=== PATIENT | female | born 1945 | race Caucasian/White ===

== ENCOUNTER → 2017-04-14 | Outpatient (CLI) | payer MEDICARE, MEDICAID ==
[~2017-04-14] MED LIST: AMITRIPTYLINE H25 M1 PO; ASPIRIN 81M81 MG/TA2 PO; CEFTIN500 MG PO; COUMADIN 5MG5 MG/TAB PO; COZAAR100 MG PO; DULERA1 AR1 IH; GABAPENTIN300 M1 PO; GRALISE600 MG PO; IPRATROPIUM BROM3 M1 IH; LASIX 20MG TABL20 MG; LEVAQUIN 2250 MG/TAB PO; LOTRISONE CREAM15 GM TP; LOVENOX 8080 MG/0.8 SQ; MAXZIDE; MEGACE ORAL40 MG/ML PO; MICARDIS40 MG PO; MICARDIS80 MG PO; NAPROSYN500 MG PO; NEB; NEXIUM 40MG40 MG; NEXIUM 40MG40 MG PO; NORCO 325 MG-51 TAB PO; PERCOCET 325 MG1 TA2 PO; PREDNISONE20 MG PO; PROTONIX 40MG T40 MG PO; RELION VEN0.09 MG/Ac IH; REQUIP2 MG PO; SPIRIVA18 MCG IH; VALIUM 5MG T5 MG/TAB PO; VENTOLIN0.09 MG IH; VICODIN 5/5001 UDTAB PO; ZITHROMAX Z PA250 MG PO; ZOCOR 10MG10 MG PO
== END ==
LOC: COL.RAD 12:44
DX: R91.1 Solitary pulmonary nodule (principal); K44.9 Diaphragmatic hernia without obstruction or gangrene; I70.0 Atherosclerosis of aorta
CPT/HCPCS: Q9967

== ENCOUNTER → 2017-09-26 | Outpatient (CLI) | payer MEDICARE, MEDICAID ==
[~2017-09-26] MED LIST changes: +ATIVAN 0.50.5 MG/TAB PO; +TRAVEL SICKNESS50 MG PO
== END ==
LOC: COL.RAD 13:23
DX: R20.0 Anesthesia of skin (principal); R20.2 Paresthesia of skin
CPT/HCPCS: J7050; Q9967

== ENCOUNTER → 2018-02-08 | Outpatient (CLI) | payer MEDICARE, MEDICAID | LOC: COL.RAD 08:35 | DX: R07.9 Chest pain, unspecified (principal); R06.09 Other forms of dyspnea; Z86.711 Personal history of pulmonary embolism | CPT/HCPCS: Q9967 ==

== ENCOUNTER 2018-03-03 06:52 | Day surgery (SDC) | payer MEDICARE, MEDICAID ==
[~2018-03-03] VITALS: Ht 167.6 cm; Wt 66.8 kg
[2018-03-03 07:08] VITALS: BP 147/84; PULSE 75; TEMP 97.6
[2018-03-03] MEDS ORDERED: 00186-0372-20 IH (07:12)
[2018-03-03] MEDS ORDERED: ATHLETE'S FOOT1% TP (07:13)
[2018-03-03] MEDS ORDERED: GRALISE600 MG PO (07:14)
[2018-03-03] MEDS ORDERED: COZAAR 50MG50 MG/TAB PO (07:14)
[2018-03-03] MEDS ORDERED: LIPITOR 10MG10 MG PO (07:14)
[2018-03-03 10:30] VITALS: BP 123/59; PULSE 64; TEMP 97.2
[2018-03-03 10:45] VITALS: BP 137/78; PULSE 68; TEMP 97.8
[2018-03-03 11:00] VITALS: BP 134/50; PULSE 66; TEMP 98.4
== END 2018-03-03 11:25 | disposition home or self-care (01) ==
LOC: SDCO 06:52
DX: K40.90 Unilateral inguinal hernia, without obstruction or gangrene, not specified as recurrent (principal); I10 Essential (primary) hypertension; E78.5 Hyperlipidemia, unspecified; J43.1 Panlobular emphysema; I25.10 Atherosclerotic heart disease of native coronary artery without angina pectoris; K21.9 Gastro-esophageal reflux disease without esophagitis; F17.210 Nicotine dependence, cigarettes, uncomplicated; Z91.013 Allergy to seafood; Z90.49 Acquired absence of other specified parts of digestive tract; Z86.73 Personal history of transient ischemic attack (TIA), and cerebral infarction without residual deficits; Z86.718 Personal history of other venous thrombosis and embolism; Z86.711 Personal history of pulmonary embolism; Z80.42 Family history of malignant neoplasm of prostate; Z82.3 Family history of stroke; Z83.3 Family history of diabetes mellitus; Z82.49 Family history of ischemic heart disease and other diseases of the circulatory system
CPT/HCPCS: C1781; J0690; J1100; J2405; J2704; J2795; J3010; J7120

== ENCOUNTER → 2018-05-23 | Outpatient (CLI) | payer MEDICARE, MEDICAID ==
[~2018-05-23] MED LIST changes: +00186-0372-20 IH; +ATHLETE'S FOOT1% TP; +COZAAR 50MG50 MG/TAB PO; +LIPITOR 10MG10 MG PO
== END ==
LOC: COL.PUL 12:27
DX: J41.1 Mucopurulent chronic bronchitis (principal); J43.8 Other emphysema; F17.200 Nicotine dependence, unspecified, uncomplicated

== ENCOUNTER 2018-06-20 14:44 | Inpatient (IN) | payer MEDICARE, MEDICAID ==
[~2018-06-20] VITALS: Ht 170.2 cm; Wt 62.9 kg
[2018-06-20] VITALS (10 sets, daily range): BP systolic 89–124; BP diastolic 52–69; PULSE 73–89; TEMP 98.6–99.7
[2018-06-20 15:26] LABS: BASO % 0.2 % (0.0-2.0); EOS % 0.1 % (0-4.0); GRAN # 9.4 (1.4-6.5); GRAN % 75.1 % (42.2-75.2); LYMPH # 2.2 (1.2-3.4); LYMPH % 17.6 % (20.0-51.0); MEAN CELL VOLUME 92 fl (80.0-100.0); MEAN CORPUSCULAR HGB CONC 35 g/dl (33.0-37.0); MEAN PLATELET VOLUME 9.7 fl (7.4-10.4); MONO # 0.8 (0.1-0.6); MONO % 6.1 % (1.7-9.3); PLATELET COUNT 259 K/mm3 (130-400); RED BLOOD COUNT 2.12 M/mm3 (4.10-5.30); REDCELL DISTRIBUTION WIDTH-CV 13.4 % (11.5-14.5)
[2018-06-20 15:32] LABS: HEMATOCRIT 19.5 % (37.0-47.0); HEMOGLOBIN 6.8 g/dl (12.5-16.0); MEAN CORPUSCULAR HEMOGLOBIN 32 pg (27.0-31.0)
[2018-06-20 15:39] LABS: ALANINE AMINOTRANSFERASE 33 U/L (9-52); ALBUMIN 3.4 gm/dL (3.5-5.0); ALKALINE PHOSPHATASE 45 U/L (50-136); ANION GAP 8 mmol/L (7-16); AST,SGOT 31 U/L (15-37); BILIRUBIN,TOTAL 0.4 mg/dL (0.0-1.0); BLOOD UREA NITROGEN 35 mg/dL (7-17); C-REACTIVE PROTEIN < 0.5 mg/dL (0.0-0.9); CALCIUM 8.6 mg/dL (8.4-10.2); CARBON DIOXIDE 23 mmol/L (22-30); CHLORIDE 95 mmol/L (98-107); CREATININE, serum 0.95 mg/dL (0.52-1.25); GLUCOSE 100 mg/dL (74-106); LIPASE 175 U/L (23-300); POTASSIUM 3.6 mmol/L (3.4-5.0); SODIUM 126 mmol/L (137-145); TOTAL PROTEIN 5.9 gm/dL (6.4-8.2)
[2018-06-20 15:48] LABS: TROPONIN-I 0.019 ng/mL (0.000-0.034)
[2018-06-21] VITALS (10 sets, daily range): BP systolic 92–127; BP diastolic 42–83; PULSE 61–111; TEMP 97.7–98.5
[2018-06-21 06:48] LABS: BASO % 0.3 % (0.0-2.0); EOS # 0.2 (0.0-0.7); EOS % 1.7 % (0-4.0); GRAN # 5.1 (1.4-6.5); GRAN % 57.5 % (42.2-75.2); LYMPH # 2.7 (1.2-3.4); LYMPH % 30.1 % (20.0-51.0); MEAN CELL VOLUME 93 fl (80.0-100.0); MEAN CORPUSCULAR HGB CONC 33 g/dl (33.0-37.0); MEAN PLATELET VOLUME 10.4 fl (7.4-10.4); MONO # 0.8 (0.1-0.6); MONO % 8.8 % (1.7-9.3); PLATELET COUNT 188 K/mm3 (130-400); RED BLOOD COUNT 2.14 M/mm3 (4.10-5.30); REDCELL DISTRIBUTION WIDTH-CV 15.5 % (11.5-14.5)
[2018-06-21 06:50] LABS: HEMATOCRIT 19.8 % (37.0-47.0); HEMOGLOBIN 6.6 g/dl (12.5-16.0); MEAN CORPUSCULAR HEMOGLOBIN 31 pg (27.0-31.0)
[2018-06-21 06:59] LABS: CALCIUM 7.5 mg/dL (8.4-10.2); CREATININE, serum 0.96 mg/dL (0.52-1.25); POTASSIUM 3.1 mmol/L (3.4-5.0)
[2018-06-21 07:55] LABS: BAND 3 % (0-10); EOSINOPHIL 2 % (0-4); LYMPHOCYTE 30 % (20.0-51.0); METAMYELOCYTE 1 % (0-0); NEUTROPHILS 60 % (42.0-75.2)
[2018-06-21 07:56] LABS: HYPOCHROMIA 1+; PLATELET ESTIMATE NORMAL (NORMAL)
[2018-06-21 07:58] LABS: ANISOCYTOSIS 2+; OVALOCYTES 1+; POIKILOCYTOSIS 1+
[2018-06-21 19:26] LABS: HEMOGLOBIN 7.8 g/dl (12.5-16.0)
[2018-06-21 19:27] LABS: HEMATOCRIT 23.2 % (37.0-47.0)
[2018-06-22 01:06] VITALS: BP 142/90; PULSE 80; TEMP 98
[2018-06-22 05:26] VITALS: BP 138/64; PULSE 75; TEMP 99.2
[2018-06-22 05:38] VITALS: BP 138/64; PULSE 75; TEMP 99.2
[2018-06-22 07:21] VITALS: BP 119/69; PULSE 74; TEMP 97.9
[2018-06-22 07:29] LABS: MEAN CELL VOLUME 93 fl (80.0-100.0); MEAN CORPUSCULAR HGB CONC 33 g/dl (33.0-37.0); MEAN PLATELET VOLUME 10.5 fl (7.4-10.4); PLATELET COUNT 184 K/mm3 (130-400); RED BLOOD COUNT 2.64 M/mm3 (4.10-5.30); REDCELL DISTRIBUTION WIDTH-CV 16.8 % (11.5-14.5)
[2018-06-22 07:33] LABS: CALCIUM 7.9 mg/dL (8.4-10.2); CREATININE, serum 0.86 mg/dL (0.52-1.25); POTASSIUM 3.4 mmol/L (3.4-5.0)
[2018-06-22 07:41] LABS: HEMATOCRIT 24.6 % (37.0-47.0); HEMOGLOBIN 8.2 g/dl (12.5-16.0); MEAN CORPUSCULAR HEMOGLOBIN 31 pg (27.0-31.0)
[2018-06-22 08:18] VITALS: BP 120/58; PULSE 73
[2018-06-22 09:49] LABS: EOSINOPHIL 3 % (0-4); LYMPHOCYTE 19 % (20.0-51.0); METAMYELOCYTE 1 % (0-0); NEUTROPHILS 71 % (42.0-75.2); PLATELET ESTIMATE NORMAL (NORMAL)
[2018-06-22 09:50] LABS: BURR CELLS 1+; POLYCHROMASIA 1+
[2018-06-22] MEDS ORDERED: PROTONIX 40MG T40 MG PO (10:26)
[2018-06-22] MEDS ORDERED: ZOFRAN ODT4 MG PO (10:30)
== END 2018-06-22 11:43 | disposition home or self-care (01) | DRG 378 ==
LOC: COL.ER 14:44 → MEDICAL 16:19
PROVIDERS: Emergency Medicine; Internal Medicine Gastroenterology; Physician Assistant
PROC: 0W3P8ZZ Control Bleeding in Gastrointestinal Tract, Via Natural or Artificial Opening Endoscopic (ICD-10-PCS; principal; 2018-06-21 08:30)
PROC: 0DJD8ZZ Inspection of Lower Intestinal Tract, Via Natural or Artificial Opening Endoscopic (ICD-10-PCS; 2018-06-22)
DX: K92.1 Melena (principal); D62 Acute posthemorrhagic anemia; E87.1 Hypo-osmolality and hyponatremia; Z66 Do not resuscitate; I10 Essential (primary) hypertension; J44.9 Chronic obstructive pulmonary disease, unspecified; Z86.711 Personal history of pulmonary embolism; F17.210 Nicotine dependence, cigarettes, uncomplicated; E87.6 Hypokalemia; K64.0 First degree hemorrhoids
CPT/HCPCS: 99222-AI; 99232-AI; 99239; C9113; J2405; J2704; J3480; J7030; P9016

== ENCOUNTER 2018-07-07 10:38 | Inpatient (IN) | payer MEDICARE, MEDICAID ==
[2018-07-07] VITALS (214 sets, daily range): BP systolic 107–137; BP diastolic 58–84; PULSE 81; TEMP 97.8–98.1; O2SAT 75–100
[~2018-07-07] VITALS: Ht 167.6 cm; Wt 60.3 kg
[~2018-07-07 10:38] MED LIST changes: +ZOFRAN ODT4 MG PO
[2018-07-07 11:54] LABS: BASO % 0.4 % (0.0-2.0); EOS # 0.1 (0.0-0.7); EOS % 1.1 % (0-4.0); GRAN # 6.4 (1.4-6.5); GRAN % 75.6 % (42.2-75.2); HEMOGLOBIN 10.3 g/dl (12.5-16.0); LYMPH # 1.5 (1.2-3.4); LYMPH % 17.6 % (20.0-51.0); MEAN CELL VOLUME 95 fl (80.0-100.0); MEAN CORPUSCULAR HEMOGLOBIN 30 pg (27.0-31.0); MEAN CORPUSCULAR HGB CONC 32 g/dl (33.0-37.0); MEAN PLATELET VOLUME 9.2 fl (7.4-10.4); MONO # 0.4 (0.1-0.6); MONO % 4.4 % (1.7-9.3); PLATELET COUNT 405 K/mm3 (130-400); RED BLOOD COUNT 3.41 M/mm3 (4.10-5.30); REDCELL DISTRIBUTION WIDTH-CV 16.3 % (11.5-14.5)
[2018-07-07 11:58] LABS: HEMATOCRIT 32.5 % (37.0-47.0)
[2018-07-07] MEDS ORDERED: NATURAL IRON65 MG PO (12:01)
[2018-07-07 12:03] LABS: ALBUMIN 3.9 gm/dL (3.5-5.0); BILIRUBIN,TOTAL 0.3 mg/dL (0.0-1.0); CALCIUM 9.1 mg/dL (8.4-10.2); CREATININE, serum 1.16 mg/dL (0.52-1.25); INR 1.1 (0.8-3.0); POTASSIUM 4.2 mmol/L (3.4-5.0); TOTAL PROTEIN 7.1 gm/dL (6.4-8.2)
[2018-07-07 12:14] LABS: TROPONIN-I 0.017 ng/mL (0.000-0.034)
[2018-07-07 14:48] LABS: COLLECTION METHOD CLEAN CATCH
[2018-07-07 14:59] LABS: PH 6 (5-8); SQUAMOUS EPITHELIAL 0-2 /hpf; URINE APPEARANCE Clear; URINE BACTERIA None Seen /hpf; URINE BILIRUBIN Negative (NEGATIVE); URINE BLOOD Negative (NEGATIVE); URINE COLOR Straw; URINE GLUCOSE Negative (NEGATIVE); URINE KETONE Negative (NEGATIVE); URINE LEUKOCYTE ESTERASE Negative (NEGATIVE); URINE NITRATE Negative (NEGATIVE); URINE PROTEIN(semi-quant) Negative (NEGATIVE); URINE RBC 0-2 /hpf; URINE UROBILINOGEN Negative (NEGATIVE); URINE WBC 0-2 /hpf
[2018-07-07 17:15] LABS: PARTIAL THROMBOPLASTIN TIME 32.4 SECONDS (26.0-37.0)
[2018-07-08] VITALS (853 sets, daily range): BP systolic 105–127; BP diastolic 55–71; PULSE 68–90; TEMP 97.3–98.5; O2SAT 76–100
[2018-07-08 03:22] LABS: PARTIAL THROMBOPLASTIN TIME 126.1 SECONDS (26.0-37.0)
[2018-07-08 03:28] LABS: BASO % 0.5 % (0.0-2.0); EOS # 0.3 (0.0-0.7); EOS % 4.6 % (0-4.0); GRAN # 3.3 (1.4-6.5); GRAN % 54.1 % (42.2-75.2); LYMPH % 32.9 % (20.0-51.0); MEAN CELL VOLUME 95 fl (80.0-100.0); MEAN CORPUSCULAR HGB CONC 32 g/dl (33.0-37.0); MEAN PLATELET VOLUME 9.7 fl (7.4-10.4); MONO # 0.4 (0.1-0.6); MONO % 7.2 % (1.7-9.3); PLATELET COUNT 359 K/mm3 (130-400); RED BLOOD COUNT 2.89 M/mm3 (4.10-5.30); REDCELL DISTRIBUTION WIDTH-CV 16.2 % (11.5-14.5)
[2018-07-08 03:29] LABS: HEMATOCRIT 27.3 % (37.0-47.0); HEMOGLOBIN 8.7 g/dl (12.5-16.0); MEAN CORPUSCULAR HEMOGLOBIN 30 pg (27.0-31.0)
[2018-07-08 03:33] LABS: CALCIUM 8.4 mg/dL (8.4-10.2); CREATININE, serum 0.93 mg/dL (0.52-1.25); POTASSIUM 4.1 mmol/L (3.4-5.0)
[2018-07-08 12:17] LABS: IRON,SERUM 18 ug/dL (35-150)
[2018-07-08 12:25] LABS: TOTAL IRON BINDING CAPACITY 355 ug/dL (265-497)
[2018-07-08 14:33] LABS: HEMOGLOBIN 8.9 g/dl (12.5-16.0)
[2018-07-08 18:22] LABS: HEMATOCRIT 28.4 % (37.0-47.0); HEMOGLOBIN 9.1 g/dl (12.5-16.0)
[2018-07-08 22:37] LABS: HEMOGLOBIN 8.2 g/dl (12.5-16.0)
[2018-07-08 22:38] LABS: HEMATOCRIT 25.3 % (37.0-47.0)
[2018-07-09] VITALS (441 sets, daily range): BP systolic 98–128; BP diastolic 42–79; PULSE 77–82; TEMP 97.9–98.3; O2SAT 72–100
[2018-07-09 05:19] LABS: MEAN CELL VOLUME 93 fl (80.0-100.0); MEAN CORPUSCULAR HGB CONC 32 g/dl (33.0-37.0); MEAN PLATELET VOLUME 9.2 fl (7.4-10.4); PLATELET COUNT 362 K/mm3 (130-400); RED BLOOD COUNT 3.19 M/mm3 (4.10-5.30); REDCELL DISTRIBUTION WIDTH-CV 15.7 % (11.5-14.5)
[2018-07-09 05:23] LABS: HEMATOCRIT 29.6 % (37.0-47.0); HEMOGLOBIN 9.6 g/dl (12.5-16.0); MEAN CORPUSCULAR HEMOGLOBIN 30 pg (27.0-31.0)
[2018-07-09 08:31] LABS: CALCIUM 8.9 mg/dL (8.4-10.2); CREATININE, serum 0.94 mg/dL (0.52-1.25); POTASSIUM 4.2 mmol/L (3.4-5.0)
[2018-07-09 14:09] LABS: COAG INR 1.2 (0.9-1.2)
[2018-07-09] MEDS ORDERED: ATIVAN 0.50.5 MG/TAB PO (15:16)
[2018-07-10 04:34] VITALS: BP 106/91; PULSE 87; TEMP 98
[2018-07-10 07:04] LABS: BASO % 0.4 % (0.0-2.0); EOS # 0.3 (0.0-0.7); EOS % 4.9 % (0-4.0); GRAN # 3.1 (1.4-6.5); GRAN % 59.2 % (42.2-75.2); LYMPH # 1.5 (1.2-3.4); LYMPH % 27.9 % (20.0-51.0); MEAN CELL VOLUME 94 fl (80.0-100.0); MEAN CORPUSCULAR HGB CONC 32 g/dl (33.0-37.0); MEAN PLATELET VOLUME 9.5 fl (7.4-10.4); MONO # 0.4 (0.1-0.6); MONO % 7.2 % (1.7-9.3); PLATELET COUNT 383 K/mm3 (130-400); RED BLOOD COUNT 3.13 M/mm3 (4.10-5.30); REDCELL DISTRIBUTION WIDTH-CV 15.9 % (11.5-14.5)
[2018-07-10 07:07] LABS: HEMATOCRIT 29.3 % (37.0-47.0); HEMOGLOBIN 9.5 g/dl (12.5-16.0); MEAN CORPUSCULAR HEMOGLOBIN 30 pg (27.0-31.0)
[2018-07-10 07:21] LABS: FACTOR V LEIDEN MUTATION B Negative (Negative); PARTIAL THROMBLASTIN TIME 331.2 seconds (25.0-35.0)
[2018-07-10 07:22] LABS: PT G20210A MUTATION B Negative (Negative)
[2018-07-10 07:38] VITALS: BP 136/75; PULSE 88; TEMP 98.3
[2018-07-10 08:30] LABS: CALCIUM 8.9 mg/dL (8.4-10.2); CREATININE, serum 0.9 mg/dL (0.52-1.25); POTASSIUM 4.1 mmol/L (3.4-5.0)
[2018-07-10 11:54] VITALS: BP 117/74; PULSE 97; TEMP 97.9
[2018-07-10 16:31] VITALS: BP 106/52; PULSE 82; TEMP 98.4
[2018-07-10 18:43] VITALS: BP 114/68; PULSE 95
[2018-07-11 04:00] VITALS: BP 119/55; PULSE 86; TEMP 97.6
[2018-07-11 06:28] LABS: MEAN CELL VOLUME 93 fl (80.0-100.0); MEAN CORPUSCULAR HGB CONC 33 g/dl (33.0-37.0); MEAN PLATELET VOLUME 9.8 fl (7.4-10.4); PLATELET COUNT 367 K/mm3 (130-400); RED BLOOD COUNT 3.04 M/mm3 (4.10-5.30); REDCELL DISTRIBUTION WIDTH-CV 15.9 % (11.5-14.5)
[2018-07-11 06:29] LABS: HEMATOCRIT 28.3 % (37.0-47.0); HEMOGLOBIN 9.2 g/dl (12.5-16.0); MEAN CORPUSCULAR HEMOGLOBIN 30 pg (27.0-31.0)
[2018-07-11 06:39] LABS: PROTHROMBIN TIME 11.2 SECONDS (9.7-12.8)
[2018-07-11 07:25] VITALS: BP 122/62; PULSE 77; TEMP 98.5
[2018-07-11 10:10] LABS: ANTI-THROMBIN III 114 % (72-128)
[2018-07-11 10:14] LABS: PROTEIN C ACTIVITY 99 % (70-150)
[2018-07-11 11:17] VITALS: BP 107/71; PULSE 90; TEMP 98.5
[2018-07-11 14:30] LABS: LUPUS ANTICOAGULANT INR 1.3 (()); LUPUS ANTICOAGULANT PT 14.8 sec (())
[2018-07-11 15:06] VITALS: BP 103/62; PULSE 78; TEMP 98.3
[2018-07-11 19:50] VITALS: BP 106/57; PULSE 78; TEMP 98.4
[2018-07-12] VITALS (7 sets, daily range): BP systolic 95–116; BP diastolic 42–87; PULSE 74–86; TEMP 97.3–98.6
[2018-07-12 07:17] LABS: PROTHROMBIN TIME 11.8 SECONDS (9.7-12.8)
[2018-07-12 07:20] LABS: HEMATOCRIT 30.4 % (37.0-47.0); HEMOGLOBIN 9.6 g/dl (12.5-16.0)
[2018-07-13 03:58] VITALS: BP 130/95; PULSE 110; TEMP 98.5
[2018-07-13 07:37] LABS: HEMATOCRIT 28.7 % (37.0-47.0)
[2018-07-13 07:50] LABS: INR 1.3 (0.8-3.0)
[2018-07-13 07:58] VITALS: BP 106/60; PULSE 79; TEMP 98.8
[2018-07-13] MEDS ORDERED: FERROUS GL325 MG/TAB PO (10:57)
[2018-07-13] MEDS ORDERED: COUMADIN 5MG5 MG/TAB PO (10:58)
[2018-07-13] MEDS ORDERED: LOVENOX 6060 MG/0.6 SQ (10:59)
[2018-07-13 11:43] VITALS: BP 117/48; PULSE 71; TEMP 98.6
== END 2018-07-13 14:50 | disposition home or self-care (01) | DRG 176 ==
LOC: COL.ER 10:38 → ICU 14:35 → MEDICAL 07-09 10:15
PROVIDERS: Emergency Medicine; Hospitalist; Internal Medicine Pulmonary Disease; Physician Assistant
DX: I26.99 Other pulmonary embolism without acute cor pulmonale (principal); I82.443 Acute embolism and thrombosis of tibial vein, bilateral; E87.1 Hypo-osmolality and hyponatremia; E44.0 Moderate protein-calorie malnutrition; I10 Essential (primary) hypertension; J44.9 Chronic obstructive pulmonary disease, unspecified; G62.9 Polyneuropathy, unspecified; F17.210 Nicotine dependence, cigarettes, uncomplicated; E78.5 Hyperlipidemia, unspecified
CPT/HCPCS: 99232-AI; 99233-AI; C9113; J1644; J7030; Q9967

== ENCOUNTER 2018-08-01 10:18 | Emergency (ER) | payer MEDICARE, MEDICAID ==
[~2018-08-01] VITALS: Ht 170.2 cm; Wt 60.9 kg
[~2018-08-01 10:18] MED LIST changes: +FERROUS GL325 MG/TAB PO; +LOVENOX 6060 MG/0.6 SQ; +NATURAL IRON65 MG PO
[2018-08-01 10:55] LABS: BASO % 0.4 % (0.0-2.0); EOS # 0.2 (0.0-0.7); GRAN # 4.9 (1.4-6.5); GRAN % 63.1 % (42.2-75.2); HEMOGLOBIN 11.3 g/dl (12.5-16.0); LYMPH % 26.1 % (20.0-51.0); MEAN CELL VOLUME 93 fl (80.0-100.0); MEAN CORPUSCULAR HEMOGLOBIN 30 pg (27.0-31.0); MEAN CORPUSCULAR HGB CONC 32 g/dl (33.0-37.0); MEAN PLATELET VOLUME 9.2 fl (7.4-10.4); MONO # 0.6 (0.1-0.6); MONO % 7.1 % (1.7-9.3); PLATELET COUNT 348 K/mm3 (130-400); RED BLOOD COUNT 3.81 M/mm3 (4.10-5.30); REDCELL DISTRIBUTION WIDTH-CV 15.7 % (11.5-14.5)
[2018-08-01 10:56] LABS: HEMATOCRIT 35.5 % (37.0-47.0)
[2018-08-01 10:58] LABS: INR 1.2 (0.8-3.0); PROTHROMBIN TIME 13.2 SECONDS (9.7-12.8)
[2018-08-01] MEDS ORDERED: COZAAR 50MG50 MG/TAB PO (11:02)
[2018-08-01 11:03] LABS: ALANINE AMINOTRANSFERASE 33 U/L (9-52); ALBUMIN 4.1 gm/dL (3.5-5.0); ALKALINE PHOSPHATASE 71 U/L (50-136); ANION GAP 8 mmol/L (7-16); AST,SGOT 35 U/L (15-37); BILIRUBIN,TOTAL 0.3 mg/dL (0.0-1.0); BLOOD UREA NITROGEN 17 mg/dL (7-17); CARBON DIOXIDE 24 mmol/L (22-30); CHLORIDE 97 mmol/L (98-107); CREATININE, serum 1.03 mg/dL (0.52-1.25); GLUCOSE 72 mg/dL (74-106); POTASSIUM 4.8 mmol/L (3.4-5.0); SODIUM 130 mmol/L (137-145); TOTAL PROTEIN 7.2 gm/dL (6.4-8.2)
[2018-08-01] MEDS ORDERED: VENTOLIN0.09 MG INH (11:03)
[2018-08-01 11:15] LABS: TROPONIN-I < 0.012 ng/mL (0.000-0.034)
[2018-08-01 11:50] LABS: HEMOGLOBIN 10.3 g/dl (12.5-16.0)
[2018-08-01 11:51] LABS: HEMATOCRIT 32.7 % (37.0-47.0)
[2018-08-01 12:13] LABS: COLLECTION METHOD CLEAN CATCH
[2018-08-01 12:20] LABS: MUCOUS Present /lpf; PH 6 (5-8); SQUAMOUS EPITHELIAL 0-2 /hpf; URINE APPEARANCE Clear; URINE BACTERIA None Seen /hpf; URINE BILIRUBIN Negative (NEGATIVE); URINE BLOOD 1+ (NEGATIVE); URINE COLOR Yellow; URINE GLUCOSE Negative (NEGATIVE); URINE KETONE Negative (NEGATIVE); URINE LEUKOCYTE ESTERASE Negative (NEGATIVE); URINE NITRATE Negative (NEGATIVE); URINE PROTEIN(semi-quant) Negative (NEGATIVE); URINE RBC 0-2 /hpf; URINE UROBILINOGEN Negative (NEGATIVE); URINE WBC 0-2 /hpf
[2018-08-01 12:52] VITALS: BP 107/74; PULSE 70; TEMP 98.2
== END 2018-08-01 12:53 | disposition home or self-care (01) ==
LOC: COL.ER 10:18
PROVIDERS: Emergency Medicine
DX: R53.81 Other malaise (principal); K92.2 Gastrointestinal hemorrhage, unspecified; I26.99 Other pulmonary embolism without acute cor pulmonale; I10 Essential (primary) hypertension; J44.9 Chronic obstructive pulmonary disease, unspecified; F17.210 Nicotine dependence, cigarettes, uncomplicated; Z79.01 Long term (current) use of anticoagulants; Z79.899 Other long term (current) drug therapy; Z86.711 Personal history of pulmonary embolism
CPT/HCPCS: J7030

== ENCOUNTER 2018-11-30 10:30 | Emergency (ER) | payer MEDICARE, MEDICAID ==
[~2018-11-30] VITALS: Ht 170.2 cm; Wt 60.9 kg
[~2018-11-30 10:30] MED LIST changes: +VENTOLIN0.09 MG INH
[2018-11-30 10:38] VITALS: TEMP 98
[2018-11-30] MEDS ORDERED: CLOTRIMAZOLE VA45 GM TP (11:02)
[2018-11-30 11:14] LABS: BASO % 0.4 % (0.0-2.0); EOS # 0.1 (0.0-0.7); EOS % 1.4 % (0-4.0); GRAN # 5.1 (1.4-6.5); HEMATOCRIT 39.7 % (37.0-47.0); LYMPH # 1.8 (1.2-3.4); LYMPH % 23.1 % (20.0-51.0); MEAN CELL VOLUME 91 fl (80.0-100.0); MEAN CORPUSCULAR HEMOGLOBIN 30 pg (27.0-31.0); MEAN CORPUSCULAR HGB CONC 33 g/dl (33.0-37.0); MEAN PLATELET VOLUME 9.7 fl (7.4-10.4); MONO # 0.6 (0.1-0.6); MONO % 7.6 % (1.7-9.3); PLATELET COUNT 321 K/mm3 (130-400); RED BLOOD COUNT 4.36 M/mm3 (4.10-5.30); REDCELL DISTRIBUTION WIDTH-CV 18.2 % (11.5-14.5)
[2018-11-30 11:15] LABS: ALANINE AMINOTRANSFERASE 30 U/L (9-52); ALBUMIN 4.3 gm/dL (3.5-5.0); ALKALINE PHOSPHATASE 91 U/L (50-136); ANION GAP 6 mmol/L (7-16); AST,SGOT 38 U/L (15-37); BILIRUBIN,TOTAL 0.6 mg/dL (0.0-1.0); BLOOD UREA NITROGEN 19 mg/dL (7-17); CALCIUM 9.7 mg/dL (8.4-10.2); CARBON DIOXIDE 27 mmol/L (22-30); CHLORIDE 102 mmol/L (98-107); CREATININE, serum 0.99 mg/dL (0.52-1.25); GLUCOSE 88 mg/dL (74-106); LIPASE 355 U/L (23-300); SODIUM 135 mmol/L (137-145); TOTAL PROTEIN 7.6 gm/dL (6.4-8.2)
[2018-11-30 11:35] LABS: TROPONIN-I < 0.012 ng/mL (0.000-0.034)
[2018-11-30 11:59] LABS: INR 1.6 (0.8-3.0); PROTHROMBIN TIME 18.2 SECONDS (9.7-12.8)
[2018-11-30 12:02] LABS: PARTIAL THROMBOPLASTIN TIME 39.1 SECONDS (26.0-37.0)
[2018-11-30 12:54] LABS: COLLECTION METHOD CLEAN CATCH
[2018-11-30 12:59] LABS: PH 7 (5-8); SQUAMOUS EPITHELIAL 0-2 /hpf; URINE APPEARANCE Clear; URINE BACTERIA None Seen /hpf; URINE BILIRUBIN Negative (NEGATIVE); URINE BLOOD 2+ (NEGATIVE); URINE COLOR Straw; URINE GLUCOSE Negative (NEGATIVE); URINE KETONE Negative (NEGATIVE); URINE LEUKOCYTE ESTERASE Negative (NEGATIVE); URINE NITRATE Negative (NEGATIVE); URINE PROTEIN(semi-quant) Negative (NEGATIVE); URINE RBC 0-2 /hpf; URINE UROBILINOGEN Negative (NEGATIVE)
[2018-11-30] MEDS ORDERED: ANTIVERT 25MG25 MG PO (14:44)
[2018-11-30] MEDS ORDERED: ZOFRAN ODT4 MG PO (14:44)
[2018-11-30 14:55] VITALS: BP 129/73; PULSE 68
== END 2018-11-30 14:55 | disposition home or self-care (01) ==
LOC: COL.ER 10:30
PROVIDERS: Emergency Medicine
DX: R42 Dizziness and giddiness (principal); J44.9 Chronic obstructive pulmonary disease, unspecified; E78.5 Hyperlipidemia, unspecified; Z90.89 Acquired absence of other organs; F17.210 Nicotine dependence, cigarettes, uncomplicated; Z79.01 Long term (current) use of anticoagulants; Z86.711 Personal history of pulmonary embolism; Z86.718 Personal history of other venous thrombosis and embolism; Z98.890 Other specified postprocedural states
CPT/HCPCS: J2405; J7030; Q9967

== ENCOUNTER 2019-04-10 09:27 | Day surgery (SDC) | payer MEDICARE, MEDICAID ==
[2019-04-10] VITALS (11 sets, daily range): BP systolic 91–143; BP diastolic 44–867; PULSE 62–79; TEMP 97.5–98.3
[~2019-04-10] VITALS: Ht 170.2 cm; Wt 59.0 kg
[~2019-04-10 09:27] MED LIST changes: +ANTIVERT 25MG25 MG PO; +CLOTRIMAZOLE VA45 GM TP
[2019-04-10] MEDS ORDERED: NORCO 325 MG-51 TAB PO (12:19)
[2019-04-10] MEDS ORDERED: COUMADIN 77.5 MG/TAB PO (12:21)
[2019-04-10] MEDS ORDERED: DIOVAN 160MG160 MG PO (12:22)
[2019-04-10] MEDS ORDERED: RT ALBUTER2.5 MG/0.5 IH (12:25)
--- NOTE | 2019-04-10 13:40 | NUR ---
PATIENT IS A&O. VSS. DENIES PAIN. RIGHT GROIN DRESSING IS CD&I WITH GAUZE & METAPOR TAPE. ABD FLAT WITH POSTIVE BOWL SOUNDS. NO C/O N/V. IV FLUIDS INFUSING VIA PUMP. PATIENT ASKING TO EAT/DRINK RIGHT OUT OF SURGERY. HEAD TO TOE ASSESSMENT WNL. PATIENT IS A CURRENT SMOKER. A&P LUNG RIBEIRO COARSE. ORIENTED TO ROOM. CALL LIGHT IN REACH.
--- NOTE | 2019-04-10 14:35 | NUR ---
PATIENT IS A&O. VSS. DENIES PAIN. LTK DRESSING IS CD&I WITH AQUACEL AND CRYOCUFF INPLACE. TEDS TO BLE. POSITIVE PEDAL PULSES TO BLE. PICHARDO TO DEPENDENT DRAINAGE WITH SMALL AMOUNTS OF CLEAR YELLOW URINE. IV FLUIDS INFUSING VIA PUMP. NO C/O N/V. BS 123. HEAD TO TOE WNL. FAMILY AT BEDSIDE.
--- NOTE | 2019-04-10 21:15 | NUR ---
Patient in bed, is alert and oriented x4. Has drsg to right abd/groin, D/I. Bowel sounds active. Has been up to bathroom, voiding without problem. Wears oxygen at night, placed on 1.5L/nc at this time. Wearing soft collar d/t cervical disc compressions.
[2019-04-11] VITALS: BP 107/54; PULSE 74; TEMP 97.9
--- NOTE | 2019-04-11 00:11 | NUR ---
Reports pain to right groin 02/21. Medicated with [place] 2 tabs po at this time.
[2019-04-11 04:00] VITALS: BP 100/45; PULSE 68; TEMP 98.3
--- NOTE | 2019-04-11 04:20 | NUR ---
Resting in bed, denies need for pain meds at this time.
[2019-04-11 07:21] VITALS: BP 116/64; PULSE 72; TEMP 97.1
--- NOTE | 2019-04-11 08:00 | NUR ---
PATIENT SITTING UP IN BED THIS MORNING. PATIENT IS A&0X4. VSS. PATIENT STATES THAT SHE FEELS WEAK. ABDOMEN DISTENDED BUT SOFT TO PALPATION. PATIENT PASSING FLATUS. BOWEL SOUNDS HYPER ACTIVE ALL FOUR QUADRANTS. PATIENT TOLERATING DIET WITHOUT ANY COMPLAINTS OF N/V. PATIENT STATES THAT SHE HAS SOME SHORTNESS OF BREATH WITH ACTIVITY. PATIENT HAS A PRODUCTIVE COUGH WITH SCANT AMOUNTS OF THICK CLEAR SPUTUM. LOW RIGHT ABDOMEN/GROIN DRESSED WITH GAUZE & HYPAFIX AND IS CD&I. POSITIVE PEDAL PULSES EQUAL BILATERALLY. CAP REFILL <3 SECONDS. CMS INTACT. RIGHT FOREARM TO INT. CALL LIGHT WITHIN REACH. BREAKFAST TRAY ORDERED. NO OTHER NEEDS AT THIS TIME.
[2019-04-11 11:39] VITALS: BP 109/66; PULSE 67; TEMP 98.1
--- NOTE | 2019-04-11 11:59 | NUR ---
First visit from the fur comber. No needs right now.
--- NOTE | 2019-04-11 14:36 | NUR ---
ERIK met with the patient and patient's daughter, Steve, to discuss discharge plan. The patient lives in [place] with a daughter and two grandchildren. She reports independence with ADLs and has a cane and walker. The patient's PCP is Dr. Magi Griffin and she receives her medications at the [facility]. She reports no difficulties obtaining her meds. The patient's advanced directives are in EMR. The patient plans to return home with her family upon discharge. No additional needs at this time.
--- NOTE | 2019-04-11 15:45 | NUR ---
PATIENT GIVEN 2 TABLETS OF PRN NORCO PRIOR TO DISCHARGE. DISCHARGE INSTRUCTIONS REVIEWED WITH PATIENT AND DAUGHTER. ALL QUESTIONS ANSWERED. RIGHT FOREARM INT DC'D PER PENDING DISCHARGE. PATIENT TOLERATED WELL. PATIENT TAKEN TO PERSONAL VEHICLE VIA WHEELCHAIR. PATIENT DISCHARGED.
== END 2019-04-11 15:45 | disposition home or self-care (01) ==
LOC: SDCO 09:27 → SURG 13:40 → SDCO 04-11 15:45
DX: K41.30 Unilateral femoral hernia, with obstruction, without gangrene, not specified as recurrent (principal); Z79.899 Other long term (current) drug therapy; I10 Essential (primary) hypertension; E78.5 Hyperlipidemia, unspecified; Z86.711 Personal history of pulmonary embolism; Z79.01 Long term (current) use of anticoagulants; Z86.718 Personal history of other venous thrombosis and embolism; I25.10 Atherosclerotic heart disease of native coronary artery without angina pectoris; J45.909 Unspecified asthma, uncomplicated; J43.9 Emphysema, unspecified; K21.9 Gastro-esophageal reflux disease without esophagitis; Z86.73 Personal history of transient ischemic attack (TIA), and cerebral infarction without residual deficits; F17.210 Nicotine dependence, cigarettes, uncomplicated; R52 Pain, unspecified
CPT/HCPCS: OP; C1781; J0690; J2250; J2704; J3010; J7120

== ENCOUNTER 2019-06-06 09:43 | Day surgery (SDC) | payer MEDICARE, MEDICAID ==
[~2019-06-06] VITALS: Ht 170.2 cm; Wt 59.1 kg
[2019-06-06] VITALS (12 sets, daily range): BP systolic 94–138; BP diastolic 40–81; PULSE 63–74; TEMP 97.7–98.3
[~2019-06-06 09:43] MED LIST changes: +COUMADIN 77.5 MG/TAB PO; +DIOVAN 160MG160 MG PO; +RT ALBUTER2.5 MG/0.5 IH
[2019-06-06] MEDS ORDERED: COUMADIN 5MG5 MG/TAB PO (11:47)
--- NOTE | 2019-06-06 15:03 | NUR ---
Patient up from OR. Daughter at bedside. Alert and oriented x 3. Shift assessment complete. Lap sites x 3 with dunaway set, edges well approximated. Incision to right lower quadrant with dunaway set. Edges well approximated. IV infusing to right forarm per orders. Denies further needs at this time. Post op VSS. Will continue to monitor.
--- NOTE | 2019-06-06 18:34 | NUR ---
Patient has done well this afternoon. Contacted Dr. Snyder for home meds. Patient home meds entered and corrected. Patient given home med Gralise per orders. Requested pain meds this afternoon for right lower quadrant pain. Tolerating diet. Denies further needs at this time. Will report off to overnight babysitter.
--- NOTE | 2019-06-06 19:15 | NUR ---
Report received from Gemma ROJAS. Patient resting in bed and denies needs at this time.
--- NOTE | 2019-06-06 20:30 | NUR ---
Patient calls for assist to the bathroom. Patient sits up and ambulates without problems with standby assist for safety and reports history of dizziness at times. Patient voids, sits up on side of bed for several minutes then rests back in bed. SCD's reviewed and applied. HS meds reviewed and given. [place] box given. BLE elevated on pillow and warm blanket applied. States uses heated blanket at home because helps for her neuropathy. Alert and oriented x 4. 3 lap sites across upper abdomin and RLQ incision well approximated with dunaway set, no drainage. Bowel sounds active.
--- NOTE | 2019-06-06 22:00 | NUR ---
Patient rests quietly in bed. States pain "ok" and denies needs.
[2019-06-07 00:54] VITALS: BP 115/47
--- NOTE | 2019-06-07 03:17 | NUR ---
Patient up recently to the bathroom with LINING FELLER BLINDSTITCH and voided. Rests back in bed watching TV. Denies need for pain med at this time. Encouraged to call for needs.
[2019-06-07 03:43] VITALS: BP 114/51; PULSE 63; TEMP 97.8
--- NOTE | 2019-06-07 05:22 | NUR ---
Patient awake and reports RLQ abdominal pain that increases with movement 5-6/10 on pain scale and norco 1 tab given.
--- NOTE | 2019-06-07 07:58 | NUR ---
Contacted Dr. Snyder patient would like home ativan restarted. TORB orders entered.
--- NOTE | 2019-06-07 08:00 | NUR ---
Patient in bed eating breakfast. Alert and oriented x 3. Shift assessment complete. Upper abdominal lap sited with edges well approximated. RLQ incision also well approximated. States pain to RLQ with movement. Patient wearing C collar, states she typically wears this at home. States she is passing gas. Denies further needs at this time
[2019-06-07 08:52] VITALS: BP 113/40; PULSE 77; TEMP 97.9
--- NOTE | 2019-06-07 09:53 | NUR ---
Initial visit; Patient responded to [facility] offering "Good morning and God's blessings."
--- NOTE | 2019-06-07 12:00 | NUR ---
ERIK met with the patient and patient's son, Phil, to discuss discharge plan. The patient lives in [place] with her two daughters. She states one of her daughters goes to [facility] during the day, but her other daughter (Steve) will be helping her after discharge. She reports independence with ADLs and has a cane, walker, shower seat, and nocturnal oxygen from [facility]. The patient's PCP is Dr. West and she receives her medications from the [facility]. She reports no difficulties obtaining her meds. The patient's advanced directives are in EMR. The patient's DPOA-HC is her daughter, Steve Gardner, and son, Phil Yusuf. The patient plans to return home with her daughters upon discharge. No additional needs at this time.
[2019-06-07 12:37] VITALS: BP 128/54; PULSE 62; TEMP 98
--- NOTE | 2019-06-07 13:00 | NUR ---
Discharge education provided to patient. Educated on signs and symptoms of infection and when to call provider. Educated on activity restrictions and follow up appointments. Patient educated on medication safety. All questions answered. Denies further needs at this time. Patient out by wheelchair, family at bedside.
== END 2019-06-07 13:00 | disposition home or self-care (01) ==
LOC: SDCO 09:43 → SURG 15:06 → SDCO 06-07 13:00
DX: K40.91 Unilateral inguinal hernia, without obstruction or gangrene, recurrent (principal); I10 Essential (primary) hypertension; E78.5 Hyperlipidemia, unspecified; J43.1 Panlobular emphysema; I25.10 Atherosclerotic heart disease of native coronary artery without angina pectoris; K21.9 Gastro-esophageal reflux disease without esophagitis; G89.29 Other chronic pain; F41.9 Anxiety disorder, unspecified; M19.90 Unspecified osteoarthritis, unspecified site; D64.9 Anemia, unspecified; G62.9 Polyneuropathy, unspecified; Z79.01 Long term (current) use of anticoagulants; Z91.013 Allergy to seafood; Z90.710 Acquired absence of both cervix and uterus; Z86.718 Personal history of other venous thrombosis and embolism; Z86.711 Personal history of pulmonary embolism; Z86.73 Personal history of transient ischemic attack (TIA), and cerebral infarction without residual deficits
CPT/HCPCS: OP; A9284; C1781; J0690; J1100; J1885; J2405; J2704; J3010; J7120

== ENCOUNTER → 2019-07-22 | Emergency (ER) | payer MEDICARE, MEDICAID ==
[~2019-07-22] VITALS: Ht 167.6 cm; Wt 61.4 kg
[2019-07-22 13:10] VITALS: TEMP 98.3
[2019-07-22 14:28] LABS: BASO % 0.4 % (0.0-2.0); EOS # 0.2 (0.0-0.7); EOS % 2.5 % (0-4.0); GRAN # 4.8 (1.4-6.5); GRAN % 66.4 % (42.2-75.2); HEMOGLOBIN 11.8 g/dl (12.5-16.0); LYMPH # 1.7 (1.2-3.4); LYMPH % 23.9 % (20.0-51.0); MEAN CELL VOLUME 96 fl (80.0-100.0); MEAN CORPUSCULAR HEMOGLOBIN 32 pg (27.0-31.0); MEAN CORPUSCULAR HGB CONC 33 g/dl (33.0-37.0); MEAN PLATELET VOLUME 9.6 fl (7.4-10.4); MONO # 0.5 (0.1-0.6); MONO % 6.4 % (1.7-9.3); PLATELET COUNT 279 K/mm3 (130-400); RED BLOOD COUNT 3.69 M/mm3 (4.10-5.30); REDCELL DISTRIBUTION WIDTH-CV 14.3 % (11.5-14.5)
[2019-07-22 14:34] LABS: ALANINE AMINOTRANSFERASE 13 U/L (9-52); ALKALINE PHOSPHATASE 73 U/L (50-136); ANION GAP 7 mmol/L (7-16); AST,SGOT 32 U/L (15-37); BILIRUBIN,TOTAL 0.3 mg/dL (0.0-1.0); BLOOD UREA NITROGEN 21 mg/dL (7-17); CALCIUM 8.8 mg/dL (8.4-10.2); CARBON DIOXIDE 24 mmol/L (22-30); CHLORIDE 101 mmol/L (98-107); CREATININE, serum 1.09 (0.52-1.25); GLUCOSE 112 mg/dL (74-106); POTASSIUM 4.9 mmol/L (3.4-5.0); SODIUM 133 mmol/L (137-145)
[2019-07-22 14:35] LABS: HEMATOCRIT 35.4 % (37.0-47.0)
[2019-07-22 14:45] LABS: TROPONIN-I < 0.012 ng/mL (0.000-0.035)
[2019-07-22 15:27] LABS: INR 1.9 (0.8-3.0); PROTHROMBIN TIME 22.8 SECONDS (9.7-12.8)
[2019-07-22 15:41] LABS: COLLECTION METHOD CLEAN CATCH
[2019-07-22 15:46] LABS: PH 6 (5-8); SQUAMOUS EPITHELIAL 0-2 /hpf; URINE APPEARANCE Clear; URINE BACTERIA None Seen /hpf; URINE BILIRUBIN Negative (NEGATIVE); URINE BLOOD 2+ (NEGATIVE); URINE COLOR Yellow; URINE GLUCOSE Negative (NEGATIVE); URINE KETONE Negative (NEGATIVE); URINE LEUKOCYTE ESTERASE Negative (NEGATIVE); URINE NITRATE Negative (NEGATIVE); URINE PROTEIN(semi-quant) Negative (NEGATIVE); URINE UROBILINOGEN Negative (NEGATIVE)
[2019-07-22 16:35] VITALS: BP 138/68; PULSE 70
== END ==
LOC: COL.ER 12:50
PROVIDERS: Emergency Medicine
DX: G62.9 Polyneuropathy, unspecified (principal); R42 Dizziness and giddiness; J44.9 Chronic obstructive pulmonary disease, unspecified; I10 Essential (primary) hypertension; F17.210 Nicotine dependence, cigarettes, uncomplicated; Z86.718 Personal history of other venous thrombosis and embolism; Z79.51 Long term (current) use of inhaled steroids; Z79.01 Long term (current) use of anticoagulants
CPT/HCPCS: J7030

== ENCOUNTER 2020-05-02 05:10 | Day surgery (SDC) | payer MEDICARE, MEDICAID ==
[~2020-05-02] VITALS: Ht 170.2 cm; Wt 64.5 kg
[~2020-05-02 05:10] MED LIST changes: -DIOVAN 160MG160 MG PO; +DIOVAN 80MG80 MG PO; -RT ALBUTER2.5 MG/0.5 IH
[2020-05-02] MEDS ORDERED: LIPITOR 10MG10 MG PO (06:02)
[2020-05-02] MEDS ORDERED: LOVENOX 6060 MG/0.6 SQ (06:07)
[2020-05-02] MEDS ORDERED: NARCAN4 MG NS (06:10)
[2020-05-02] MEDS ORDERED: OXYGEN MC (06:11)
[2020-05-02 09:45] VITALS: BP 143/56; PULSE 70; TEMP 97.4
--- NOTE | 2020-05-02 09:45 | NUR ---
Patient arrives back to [facility] alert, complains of pain in left inguinal area, complains of 6/10 pain. Patient has bandaids x3 across upper adbomen that are clean/dry/intact. Patient monitor applied, vitals stable. Patient's daughter is at bedside. Patient given muffin and coffee.
--- NOTE | 2020-05-02 09:45 | NUR ---
Patient arrives back to [facility] alert, complains of pain in left inguinal area, complains of 6/10 pain. Patient has bandaids x3 across upper adbomen that are clean/dry/intact. Patient monitor applied, vitals stable. Patient's daughter is at bedside. Patient given water. Patient does complain of nausea.
[2020-05-02 10:00] VITALS: BP 157/51; PULSE 61
--- NOTE | 2020-05-02 10:10 | NUR ---
Patient given PRN nausea medication at this time. Patient complains of dry heaves. Tolerating water well and has not vomited.
--- NOTE | 2020-05-02 10:15 | NUR ---
Patient tolerated food and drink without any nausea or vomiting. Patient denies pain. Incision has no drainage and is well approximated.
[2020-05-02 10:30] VITALS: BP 127/65; PULSE 68
--- NOTE | 2020-05-02 10:30 | NUR ---
Patient reports that she feels better and wants to go home and rest in her own bed.
--- NOTE | 2020-05-02 10:45 | NUR ---
Dismissal instructions gone over with patient and patient's spouse. Both verbalize understanding and all questions answered.
--- NOTE | 2020-05-02 11:00 | NUR ---
Patient discharged to patient enterance and private vehicle via wheelchair without any complications. Patient and family leave thanking staff for services.
[2020-05-02 15:36] VITALS: BP 101/81; PULSE 76; TEMP 98
== END 2020-05-02 11:00 | disposition home or self-care (01) ==
LOC: SDCO 05:10
DX: K40.90 Unilateral inguinal hernia, without obstruction or gangrene, not specified as recurrent (principal); K41.90 Unilateral femoral hernia, without obstruction or gangrene, not specified as recurrent; J44.9 Chronic obstructive pulmonary disease, unspecified; I10 Essential (primary) hypertension; E78.5 Hyperlipidemia, unspecified; I25.10 Atherosclerotic heart disease of native coronary artery without angina pectoris; G62.9 Polyneuropathy, unspecified; K21.9 Gastro-esophageal reflux disease without esophagitis; F41.9 Anxiety disorder, unspecified; R25.1 Tremor, unspecified; R20.2 Paresthesia of skin; G89.29 Other chronic pain; M54.9 Dorsalgia, unspecified; F17.210 Nicotine dependence, cigarettes, uncomplicated; Z86.73 Personal history of transient ischemic attack (TIA), and cerebral infarction without residual deficits; Z86.711 Personal history of pulmonary embolism; Z86.718 Personal history of other venous thrombosis and embolism; Z79.899 Other long term (current) drug therapy; Z79.01 Long term (current) use of anticoagulants
CPT/HCPCS: C1781; J0690; J1100; J1170; J1885; J2405; J2704; J2710; J3010; J7120

== ENCOUNTER 2020-08-29 18:35 | Inpatient (IN) | payer MEDICARE, MEDICAID ==
[~2020-08-29] VITALS: Ht 170.2 cm; Wt 69.3 kg
[~2020-08-29 18:35] MED LIST changes: +NARCAN4 MG NS; +OXYGEN MC
[2020-08-29 20:13] LABS: ARTERIAL BLD GAS O2 SATURATION 95.1 % (92-100); ARTERIAL BLD GAS TCO2 CT 20.8; ARTERIAL BLOOD GAS BASE EXCESS -2.5 (-2-2); ARTERIAL BLOOD GAS HCO3 19.9 meq/L (22-26); ARTERIAL BLOOD GAS PO2 71.8 mmHg (80-100); ARTERIAL BLOOD GAS pH 7.47 (7.35-7.45)
[2020-08-29 20:23] LABS: COLLECTION METHOD CLEAN CATCH
[2020-08-29 20:27] LABS: HEMATOCRIT 38.3 % (37.0-47.0); MEAN CELL VOLUME 93 fl (80.0-100.0); MEAN CORPUSCULAR HEMOGLOBIN 32 pg (27.0-31.0); MEAN CORPUSCULAR HGB CONC 34 g/dl (33.0-37.0); MEAN PLATELET VOLUME 10.3 fl (7.4-10.4); PLATELET COUNT 270 K/mm3 (130-400); RED BLOOD COUNT 4.11 M/mm3 (4.10-5.30); REDCELL DISTRIBUTION WIDTH-CV 14.2 % (11.5-14.5)
[2020-08-29 20:32] LABS: INR 2.5 (0.8-3.0); PROTHROMBIN TIME 28.1 SECONDS (9.7-12.8)
[2020-08-29 20:35] LABS: PARTIAL THROMBOPLASTIN TIME 38.6 SECONDS (26.0-37.0)
[2020-08-29 20:42] LABS: BILIRUBIN,TOTAL 0.7 mg/dL (0.0-1.0); CALCIUM 8.9 mg/dL (8.4-10.2); CREATININE, serum 1.13 (0.52-1.25); MAGNESIUM 1.6 mg/dL (1.6-2.3); POTASSIUM 3.8 mmol/L (3.4-5.0); TOTAL PROTEIN 7.6 gm/dL (6.4-8.2)
[2020-08-29 20:51] LABS: TROPONIN-I 0.031 ng/mL (0.000-0.035)
[2020-08-29 20:58] LABS: BUDDING YEAST Present /hpf; MUCOUS Present /lpf; PH 5 (5-8); SQUAMOUS EPITHELIAL 0-2 /hpf; URINE APPEARANCE Hazy; URINE BACTERIA Rare /hpf; URINE BILIRUBIN Negative (NEGATIVE); URINE BLOOD 3+ (NEGATIVE); URINE COLOR Yellow; URINE GLUCOSE Negative (NEGATIVE); URINE KETONE 1+ (NEGATIVE); URINE LEUKOCYTE ESTERASE Negative (NEGATIVE); URINE NITRATE Negative (NEGATIVE); URINE PROTEIN(semi-quant) 2+ (NEGATIVE); URINE RBC 20-50 /hpf; URINE UROBILINOGEN Negative (NEGATIVE)
[2020-08-29 21:01] LABS: C-REACTIVE PROTEIN 21.5 mg/dL (0.0-0.9)
[2020-08-29 21:08] LABS: BAND 3 % (0-10); LYMPHOCYTE 1 % (20.0-51.0); NEUTROPHILS 89 % (42.0-75.2); PLATELET ESTIMATE NORMAL (NORMAL)
[2020-08-29] MEDS ORDERED: NORCO 325 MG-7.1 TAB PO (22:56)
[2020-08-29] MEDS ORDERED: GRALISE600 MG PO (22:58)
[2020-08-29] MEDS ORDERED: 00186-0372-20 IH (22:58)
[2020-08-29] MEDS ORDERED: DIOVAN 160MG160 MG PO (22:59)
[2020-08-29] MEDS ORDERED: LIPITOR 10MG10 MG PO (22:59)
[2020-08-29] MEDS ORDERED: PROVENTIL0.09 MG/A1 IH (22:59)
[2020-08-29] MEDS ORDERED: COUMADIN 1010 MG/TAB PO (23:02)
--- NOTE | 2020-08-30 01:36 | NUR ---
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 INR ordered for 08/30-09/01. Pt has not taken warfarin for a few days, has had decreased PO intake and has been started on abx. If INR decreases tomorrow, consider a one time dose of no more than 5 m g. Pt will likely need less than home dosing for next few days. Home Regimen: 10 mg daily except 8.5 mg on Tuesdays and 7.5 mg on Fridays.
[2020-08-30 02:16] VITALS: BP 130/54; PULSE 89; TEMP 98.7
--- NOTE | 2020-08-30 05:46 | NUR ---
pt arrived at 0215 via bed from ER. pt resting in bed, assessment and admission completed. lungs are diminished in lower lobes, productive cough with clear sputum and pt reporting shortness of breath. IV fluids and antibiotics started per doctors orders and documented in JAN. this nurse talked with pt daughter and updated her on status of pt. no other needs at this time, will continue to monitor.
--- NOTE | 2020-08-30 07:00 | NUR ---
Report with CRYSTAL Dumont. Pt sitting up in bed, A&O x 3, denies pain or needs, reports slight intermittent soreness to legs. IVF's infusing per orders without s/s of complications. Call light in reach.
[2020-08-30 07:17] LABS: HEMOGLOBIN 11.4 g/dl (12.5-16.0); MEAN CELL VOLUME 94 fl (80.0-100.0); MEAN CORPUSCULAR HEMOGLOBIN 31 pg (27.0-31.0); MEAN CORPUSCULAR HGB CONC 34 g/dl (33.0-37.0); MEAN PLATELET VOLUME 10.4 fl (7.4-10.4); PLATELET COUNT 227 K/mm3 (130-400); RED BLOOD COUNT 3.63 M/mm3 (4.10-5.30); REDCELL DISTRIBUTION WIDTH-CV 14.4 % (11.5-14.5)
[2020-08-30 07:25] LABS: INR 2.8 (0.8-3.0); PROTHROMBIN TIME 31.1 SECONDS (9.7-12.8)
[2020-08-30 07:32] LABS: ALBUMIN 3.2 gm/dL (3.5-5.0); BILIRUBIN,TOTAL 0.6 mg/dL (0.0-1.0); CALCIUM 8.1 mg/dL (8.4-10.2); POTASSIUM 3.6 mmol/L (3.4-5.0); TOTAL PROTEIN 6.5 gm/dL (6.4-8.2)
[2020-08-30 08:07] VITALS: BP 121/47; PULSE 88; TEMP 98.5
[2020-08-30 10:51] LABS: BAND 12 % (0-10); LYMPHOCYTE 2 % (20.0-51.0); NEUTROPHILS 84 % (42.0-75.2); PLATELET ESTIMATE NORMAL (NORMAL)
[2020-08-30 12:08] VITALS: BP 132/59; PULSE 78; TEMP 97.8
--- NOTE | 2020-08-30 14:16 | NUR ---
SW met with patient to complete intake. Patient provides that she lives in [facility] with her grand daughter Ebony. DP-HC she provides are her daughter and son Steve Gardner [phone] and Phil Yusuf [phone]. Patient states that she utilizes a walker and wheelchair, and is independent with ADL's. Patient provides that her PCP is Dr. Valentin, pharmacy is [facility] and that she is able to afford her medications. Patient states that she plans to go back to her home upon discharge. Patient states that she has support at home and will not need any assistance upon discharge. SW observes patient may need home health services upon dc. SW will continue to follow.
--- NOTE | 2020-08-30 15:03 | NUR ---
Pt assisted to BSC and back to bed. Pt inconinent of urine prior to voiding in commode as well. No further needs reported. Call light in reach.
[2020-08-30 16:50] VITALS: BP 133/55; PULSE 74; TEMP 99.1
--- NOTE | 2020-08-30 17:00 | NUR ---
Pt resting in bed, continues to have intermittent productive cough. IVF's infusing per orders. Pt denies further needs. Call light in reach.
[2020-08-30 20:00] VITALS: BP 112/82; PULSE 78; TEMP 98.2
--- NOTE | 2020-08-30 21:43 | NUR ---
pt alert and oriented, resting in bed. assessment completed and medications given per MAR. heart sounds are regular. lung sounds are diminished in lower lobes with wheezing throughout, productive cough with small amount of clear sputum. pt reports shortness of breath, oxygen via nasal cannula on 2 liters. no other needs at this time, will continue to monitor.
[2020-08-31] VITALS (10 sets, daily range): BP systolic 114–171; BP diastolic 52–87; PULSE 73–117; TEMP 97.8–103.4
--- NOTE | 2020-08-31 00:21 | NUR ---
pt temperature was 100.3, pt stated that she did not feel hot or that she had a fever. gave tylenol prn for fever, will continue to monitor.
[2020-08-31 02:48] LABS: MEAN CELL VOLUME 92 fl (80.0-100.0); MEAN CORPUSCULAR HGB CONC 35 g/dl (33.0-37.0); MEAN PLATELET VOLUME 10.4 fl (7.4-10.4); PLATELET COUNT 242 K/mm3 (130-400); RED BLOOD COUNT 3.06 M/mm3 (4.10-5.30); REDCELL DISTRIBUTION WIDTH-CV 14.3 % (11.5-14.5)
[2020-08-31 02:55] LABS: INR 2.4 (0.8-3.0); PROTHROMBIN TIME 26.6 SECONDS (9.7-12.8)
[2020-08-31 02:59] LABS: ALANINE AMINOTRANSFERASE 15 U/L (4-34); ALBUMIN 2.6 gm/dL (3.5-5.0); ALKALINE PHOSPHATASE 63 U/L (50-136); ANION GAP 5 mmol/L (7-16); AST,SGOT 25 U/L (15-37); BILIRUBIN,TOTAL 0.3 mg/dL (0.0-1.0); BLOOD UREA NITROGEN 29 mg/dL (7-17); CALCIUM 7.9 mg/dL (8.4-10.2); CARBON DIOXIDE 21 mmol/L (22-30); CHLORIDE 106 mmol/L (98-107); CREATININE, serum 0.84 (0.52-1.25); GLUCOSE 134 mg/dL (74-106); POTASSIUM 3.5 mmol/L (3.4-5.0); SODIUM 131 mmol/L (137-145); TOTAL PROTEIN 5.4 gm/dL (6.4-8.2)
[2020-08-31 03:06] LABS: HEMATOCRIT 28.1 % (37.0-47.0); HEMOGLOBIN 9.7 g/dl (12.5-16.0); MEAN CORPUSCULAR HEMOGLOBIN 32 pg (27.0-31.0)
[2020-08-31 03:10] LABS: TROPONIN-I < 0.012 ng/mL (0.000-0.035)
[2020-08-31 03:36] LABS: BAND 17 % (0-10); LYMPHOCYTE 3 % (20.0-51.0); NEUTROPHILS 74 % (42.0-75.2); PLATELET ESTIMATE NORMAL (NORMAL)
--- NOTE | 2020-08-31 05:56 | NUR ---
pt sleeping in bed most of night, called for any needs. fever of 100.3 once during the night, gave tylenol prn per orders. pt continues to have shortness of breath and cough with small amount of clear sputum. no other needs at this time, will continue to monitor.
--- NOTE | 2020-08-31 08:58 | NUR ---
Pt assessment complete. Pt is A/O x3. Her breathing is even and unlabored on 2L O2 via NC. Pt has productive cough. Reports intermittent SOB at rest, but relieved with breathing treatments. Pt denies pain at this time. No N/V, ate breakfast without issues. IVF infusing without issues. No needs at this time. Call light within reach. Will continue to monitor.
--- NOTE | 2020-08-31 14:30 | NUR ---
SW met with patient at her bedside to complete discharge intake. Patient reports that she lives in [place] with her daughter Steve [phone] as care support and EMR. Patient reports that she was independent with ADL's and that her daughter and Son are her DPOA's. PAtient reports that she uses oxygen at night, and Dr. Foster is her PCP. Patient reports that she just saw her PCP on 26 August. Patient reports that she gets her medications from [facility] with no concerns. Patient declined a need for HHS at this time, indicating support from grandchildren and children.
--- NOTE | 2020-08-31 18:57 | NUR ---
Pt rested most of the day, had little energy. SOB on exertion. Currently on 3L O2 via NC. Elevated temperature, PRN Tylenol administered and cool rags placed on patients forehead. Pt denies pain. Little to no appetite. IVF continue into LAC. Fall precautions in place.
--- NOTE | 2020-08-31 19:39 | NUR ---
PATIENT SEEMING TO BE IN DISTRESS HAVING AN INCREASED RESPIRATORY RATE AND A HEART RATE OF 110-130'S. PATIENT IS LABORED BUT SPO2 IS REMANING IN THE 90'S. RN WAS NOTIFIED FOR CONCERN WITH PATIENTS RESPIRATORY STATUS. RN TO CALL PHYSICAN.
--- NOTE | 2020-08-31 21:00 | NUR ---
Received report from CRYSTAL Hahn. Pt is currenty in bed. I received a call from respirtory therapy to check in on pt. Pt was wheezing and she appeared to be struggling to breath. Her respirtations were about 22-23. I informed the pt that I was concerned and wanted to contact the hosptialist. I asked her how she was feeling she stated that she felt just like she did earlier. Rosi the hosptialist came in and seen pt. She decided to change the pt antibiotics and she ordeed magnesium for the pt. She also wanted the pt to be moved to an isolation room and to be tested for TB. Pt was informed of all the changes. Pt is currently in her room and is in the process of being moved to room 359.
[2020-09-01] VITALS (513 sets, daily range): BP systolic 97–136; BP diastolic 57–76; PULSE 107–117; TEMP 98–101.6; O2SAT 81–100
--- NOTE | 2020-09-01 01:04 | NUR ---
Vancomycin Initial Dosing Pharmacy Note Ordering provider: Rupesh Arcos MD Indication/duration: PNA/ 7 days Relevant comorbidities: COPD, HTN LABS: SCr = 0.84, WBC = 18.1 Recommendation: Will order troughs and adjust based on levels. Loading dose: 1.25 grams Maintenance dose: 1 gram every 12 hours Trough goal: 15-20 ug/mL
--- NOTE | 2020-09-01 05:10 | NUR ---
Pt is currently lying in bed. Pt seems to be having difficulty breating. Pt is on 4 liters of oxygen. Pt did state that she doesn't feel any better that she feels the same. Attempted to call Josselyn the hospitialst and also tried to call Tatiana but not answer from both. Respiratory therapy was contacted and pt was given a breathing treatment at this time. Pt has her call light within reach and she will be closely monitored. Pt does appear tired.
--- NOTE | 2020-09-01 05:34 | NUR ---
Dr. Arcos was contacted at this time. I informed him about the pts condition. He ordered a set of ABG's and wanted her on high flow nasal cannula. Respiratory therapy was notified at this time. Dr. Arcos did state that he wanted pt on the minimal amount but as high as 10 with liters of of oxygen. Before calling him pt heart rate was at 117 and her oxygen was at 94% on 4 liters of oxygen. Pt respirations were at 23-24. Pt just did not look well and appeared to be very tired. Pt has her call light within reach and her bed is in lowest position.
[2020-09-01 05:51] LABS: ARTERIAL BLD GAS O2 SATURATION 93.2 % (92-100); ARTERIAL BLD GAS TCO2 CT 19.1; ARTERIAL BLOOD GAS BASE EXCESS -4.1 (-2-2); ARTERIAL BLOOD GAS HCO3 18.3 meq/L (22-26); ARTERIAL BLOOD GAS PCO2 26.3 mmHg (35-45); ARTERIAL BLOOD GAS PO2 62.8 mmHg (80-100); ARTERIAL BLOOD GAS pH 7.46 (7.35-7.45)
--- NOTE | 2020-09-01 06:25 | NUR ---
Pt currently resting in bed. Pt O2 is currently at 93% and her heart rate is at 105 pt is on 9 liters of oxygen. Pt is currently sleeping and has her call light within reach.
--- NOTE | 2020-09-01 07:36 | NUR ---
Pt currently sitting up in bed eating breakfast. Pt has her call light within reach. She is currently having her O2 and heart rate monitored at this time.
[2020-09-01 07:38] LABS: HEMATOCRIT 30.5 % (37.0-47.0); HEMOGLOBIN 10.5 g/dl (12.5-16.0); MEAN CELL VOLUME 91 fl (80.0-100.0); MEAN CORPUSCULAR HEMOGLOBIN 31 pg (27.0-31.0); MEAN CORPUSCULAR HGB CONC 34 g/dl (33.0-37.0); MEAN PLATELET VOLUME 10.7 fl (7.4-10.4); PLATELET COUNT 281 K/mm3 (130-400); RED BLOOD COUNT 3.36 M/mm3 (4.10-5.30); REDCELL DISTRIBUTION WIDTH-CV 14.4 % (11.5-14.5)
[2020-09-01 07:44] LABS: ALBUMIN 2.3 gm/dL (3.5-5.0); BILIRUBIN,TOTAL 0.3 mg/dL (0.0-1.0); CALCIUM 7.3 mg/dL (8.4-10.2); CREATININE, serum 0.92 (0.52-1.25); INR 1.9 (0.8-3.0); POTASSIUM 3.5 mmol/L (3.4-5.0); PROTHROMBIN TIME 21.1 SECONDS (9.7-12.8); TOTAL PROTEIN 4.8 gm/dL (6.4-8.2)
--- NOTE | 2020-09-01 08:00 | NUR ---
PATIENT IS DROWSY BUT ORIENTED X3. PATIENT REPORTS NOT SLEEPING WELL LAST NIGHT DUE TO ALL THE TESTS/SCANS. PODIATRIC FOOT AND ANKLE SPECIALIST REPORTED TEMP OF 101.6 LAST NIGHT BUT IS AFEBRILE THIS AM. PATIENT REPORTS HER FEVER HAS BEEN UP AND DOWN. NOTED TACHYCARDIA IN THE LOW TEENS, 112 ON TELE BUT SIGNIFICANTLY INCREASES WITH ACTIVITY. PATIENT ASSISTED TO BEDSIDE COMMODE TO HAVE BM AND HR WENT UP TO 127-129 AND PATIENT BECAME SOA. PATIENT REQUIRING OXYGEN AT 9L PER HIGH FLOW OXYMASK TO KEEP SATS ABOVE 90%. OXYGEN DECREASED TO 89% ON 9L WHEN ASSISTED TO COMMODE. PATIENT DID HAVE X-LARGE, LOOSE, DARK GREEN STOOL. PATIENT RECEIVING IV ZOSYN, VANCO & LEVAQUIN. IV'S TO RIGHT FORARM AND LEFT AC. A&P LUNG RIBEIRO ARE COURSE WITH NOTED WHEEZING AND CRACKLES. PATIENT REPORTS OCCATIONAL PRODUCTIVE COUGH. PODIATRIC FOOT AND ANKLE SPECIALIST STATED PATIENT HAD ONE PINK TINGED SPUTUM THAT WAS IN A TISSUE. HOSPITALIST NOTIFED. PATIENT PLACED ON TB PRECAUTIONS ON PODIATRIC FOOT AND ANKLE SPECIALIST AFTER CT SCAN. PATIENT HAS A HARSH COUGH. NO C/V N/V HOWEVER PATIENT REPORTS DECREASED APPETITE. AM MEDS GIVEN WITH A FEW SIPS. HEAD TO TOE ASSESSMENT COMPLETE. PATIENT HAS HX OF COPD, PE AND IS A SMOKER. PATIENT RESTING UP IN BED WITH CALL LIGHT IN REACH.
[2020-09-01 08:52] LABS: BAND 25 % (0-10); LYMPHOCYTE 3 % (20.0-51.0); NEUTROPHILS 68 % (42.0-75.2)
[2020-09-01 08:54] LABS: PLATELET ESTIMATE NORMAL (NORMAL); TOXIC GRANULATION PRESENT
--- NOTE | 2020-09-01 09:08 | NUR ---
Collection Correspondent attended clinical rounds with the team. The patient is in contact and airbourne isolation at this time. The patient is now requiring 9L of oxgyen. After rounds, SW contacted the patient's daughter/DPOA-HC Steve. She was in the room with the patient. SW inquired about the patient's oxygen needs at home. The patient is usually on 2L oxygen at home and receives oxygen supplies from [facility]. Physical therapy is recommending post acute rehab. SW discussed Medicare.gov's list of post acute rehab in the [place] area. Steve was agreeable to sending referrals [facility], [facility], and [facility]. [place] [facility] are first choices. SW contacted [facility] and they are not taking patient at this time since they do not have a room to be able to quarantine (Covid) anyone. Referrals faxed.
--- NOTE | 2020-09-01 13:50 | NUR ---
AIVS AT BEDSIDE TO PLACE PICC
--- NOTE | 2020-09-01 15:00 | NUR ---
PATIENT GOING DOWN TO ICU PER ORDERS. REPORT GIVEN EARLIER TO DIRECTOR OF CATERING SALES. CHART WITH PATIENT.
--- NOTE | 2020-09-01 15:53 | NUR ---
Oil Expeller Operator attempted to contact Yusuf with [facility] regarding the referral, left message. SW attempted to contact Fany Last with [facility] regarding referral, left message. SW attempted to contact Flori with [facility] regarding referral, left message.
--- NOTE | 2020-09-01 16:12 | NUR ---
PATIENT ARRIVED TO UNIT AT 1523 VIA HOSPITAL BED FROM ROOM 359 ON MEDICAL FLOOR. NURSE HOOKED PATIENT UP TO MONITORS AND BEGAN ASSESSMENT. PATIENT CURRENTLY ON 10L O2 VIA HIGH FLOW NASAL CANNULA WITH A PRODUCTIVE COUGH. HEMOPTYSIS PRESENT WITH PHLEGM DURING COUGH. VS WNL. RESIDENT ORIENTED TO ROOM AND SITUATION. WILL CONTINUE TO MONITOR.
--- NOTE | 2020-09-01 16:21 | NUR ---
Yusuf at [facility] reports that they need a local physician to follow and sent information to [facility] physicians.
--- NOTE | 2020-09-01 19:10 | NUR ---
Bedside report received from CRYSTAL Dickinson.
--- NOTE | 2020-09-01 19:23 | NUR ---
Bedside report given to CRYSTAL Fox. All questions regarding patient answered. IV pumps checked and verified.
--- NOTE | 2020-09-01 20:00 | NUR ---
Patient resting in bed watching TV. She has called to use the restroom. By the time this nurse arrived she had already been incontinent of urine. Patient states she has problems with urgency as is not able to hold her urine very long once she has to go. Patient cleaned and new brief applied. Assessment complete, see shift assessment for details. Patient is having a productive cough with large amounts of blood-tinged sputum. No complaints of pain. Will continue to monitor. Call light within reach.
[2020-09-02] VITALS (694 sets, daily range): BP systolic 95–114; BP diastolic 55–72; PULSE 82–114; TEMP 98–98.7; O2SAT 73–100
--- NOTE | 2020-09-02 05:30 | NUR ---
Patient awake at this time. Patient has urinated in the bed again. Cleaned patient up and provided new bedding and gown. Patient states she didnt sleep well and would like to sleep some more. Started antibiotics and turned out the lights for patient. Call light within reach.
[2020-09-02 05:32] LABS: HEMOGLOBIN 10.5 g/dl (12.5-16.0); MEAN CELL VOLUME 91 fl (80.0-100.0); MEAN CORPUSCULAR HEMOGLOBIN 31 pg (27.0-31.0); MEAN CORPUSCULAR HGB CONC 34 g/dl (33.0-37.0); PLATELET COUNT 290 K/mm3 (130-400); RED BLOOD COUNT 3.39 M/mm3 (4.10-5.30); REDCELL DISTRIBUTION WIDTH-CV 14.8 % (11.5-14.5)
[2020-09-02 05:34] LABS: HEMATOCRIT 30.9 % (37.0-47.0)
[2020-09-02 05:45] LABS: ALBUMIN 2.3 gm/dL (3.5-5.0); BILIRUBIN,TOTAL 0.3 mg/dL (0.0-1.0); CALCIUM 7.4 mg/dL (8.4-10.2); CREATININE, serum 0.96 (0.52-1.25); POTASSIUM 3.6 mmol/L (3.4-5.0); TOTAL PROTEIN 5.1 gm/dL (6.4-8.2)
[2020-09-02 06:01] LABS: BAND 11 % (0-10); LYMPHOCYTE 4 % (20.0-51.0); NEUTROPHILS 83 % (42.0-75.2); PLATELET ESTIMATE NORMAL (NORMAL)
[2020-09-02 06:04] LABS: BURR CELLS 1+
--- NOTE | 2020-09-02 07:00 | NUR ---
RECEIVED REPORT FROM CRYSTAL SÁNCHEZ. PT RESING IN BED ON HFNC 6L. VSS. NOTED PT GETS SHOB WITH LITTLER EXERTION. CALL LIGHT WITHIN REACH. BRIEF IN PLACE.
--- NOTE | 2020-09-02 07:17 | NUR ---
Bedside report given to CRYSTAL Ho
--- NOTE | 2020-09-02 08:00 | NUR ---
DR DODSON AT BEDSIDE FOR ASSESSMENT AND DISCUSSING POC WITH PT.
--- NOTE | 2020-09-02 09:37 | NUR ---
O2 DECREASED TO 4L VIA HFNC. POX 99%.
--- NOTE | 2020-09-02 10:20 | NUR ---
DR SIN AT BEDSIDE FOR ASSESSMENT AND DISCUSSING POC WITH PT.
[2020-09-02 10:40] LABS: INR 4.4 (0.8-3.0)
[2020-09-02 11:28] LABS: PROTHROMBIN TIME 50.1 SECONDS (9.7-12.8)
--- NOTE | 2020-09-02 12:14 | NUR ---
REPORT GIVEN TO CRYSTAL MANJARREZ ON MEDICAL. ALL BELONGINGS SENT WITH PT.
--- NOTE | 2020-09-02 13:51 | NUR ---
Operations Professional attended clinical rounds with the team and patient to transfer to the medical floor. ERIK faxed clinical updates to [facility], [facility], and [facility]. ERIK contacted Sravanthi at [facility] who advised they are still working on finding a doctor to follow. ERIK contacted Prerna at [facility] and Prerna reports they will need a second negative before they can admit patient. Prerna is going to follow up with their DON then follow up with ERIK. ERIK contacted Flori at [facility] who advised they are currently full but may have a couple discharges coming up. Flori will follow up on this. ERIK collaborated with [facility] Perez about ordering second COVID test as patient's last negative was 08/29/20. ERIK will continue to follow.
--- NOTE | 2020-09-02 14:53 | NUR ---
Wash Oil Cooler Operator spoke with Prerna at [facility] who advised they are able to accept and will contact patient's daughter, Steve to start application for admission. ERIK Perez collaborated with CRYSTAL Morris about ordering second test.
--- NOTE | 2020-09-02 20:41 | NUR ---
PT REQUESTED TO ONLY HAVE THE 1 TX THAT SHE HAD EARLIER THIS AFTERNOON. ASKED PT IF SHE WANTED HER OTHER TREATMENTS AND SHE SAID NO. PT IS IN NO DISTRESS BRANDON WELL AND RESTING COMFORTABLY.
--- NOTE | 2020-09-02 23:54 | NUR ---
Pt resting in bed, alert and oriented. assessment completed, meds given per JAN. lungs have crackles present in bases, productive cough. heart sounds are normal and regular. no other needs at this time.
[2020-09-03] VITALS (7 sets, daily range): BP systolic 101–138; BP diastolic 50–82; PULSE 71–113; TEMP 98.4–99.6
--- NOTE | 2020-09-03 05:24 | NUR ---
pt resting in bed most of night, states that she didn't sleep well due to the noise in the airborn precaution room. called for assistance, oxygen on at 6 liters and cough still productive. no other needs at this time, will continue to monitor.
[2020-09-03 06:28] LABS: CALCIUM 6.9 mg/dL (8.4-10.2); CREATININE, serum 0.85 (0.52-1.25); MAGNESIUM 1.6 mg/dL (1.6-2.3); POTASSIUM 3.4 mmol/L (3.4-5.0)
[2020-09-03 06:37] LABS: MEAN CELL VOLUME 91 fl (80.0-100.0); MEAN CORPUSCULAR HGB CONC 34 g/dl (33.0-37.0); MEAN PLATELET VOLUME 10.6 fl (7.4-10.4); PLATELET COUNT 281 K/mm3 (130-400); RED BLOOD COUNT 2.75 M/mm3 (4.10-5.30); REDCELL DISTRIBUTION WIDTH-CV 15.1 % (11.5-14.5)
[2020-09-03 06:44] LABS: HEMOGLOBIN 8.6 g/dl (12.5-16.0); MEAN CORPUSCULAR HEMOGLOBIN 31 pg (27.0-31.0)
--- NOTE | 2020-09-03 07:00 | NUR ---
Report with CRYSTAL Dumont, not at bedside d/t not having proper mask at this time. home assessment nurse reports having just come out of the room.
[2020-09-03 07:01] LABS: INR 5.3 (0.8-3.0); PROTHROMBIN TIME 60.4 SECONDS (9.7-12.8)
--- NOTE | 2020-09-03 08:00 | NUR ---
Assessment complete. Pt resting in bed, A&O x 3, reports soreness to legs, denies pain otherwise. Pt reports incontinence of bowel and bladder, is able to roll from side to side while this nurse cleans pt and changes linens. IVF's infusing per orders through right upper arm PICC line without s/s of complications, stopped when physician in room per verbal order. No further needs reported. Call light in reach.
[2020-09-03 08:04] LABS: BAND 11 % (0-10); LYMPHOCYTE 11 % (20.0-51.0); METAMYELOCYTE 2 % (0-0); NEUTROPHILS 74 % (42.0-75.2); PLATELET ESTIMATE NORMAL (NORMAL)
--- NOTE | 2020-09-03 14:16 | NUR ---
Dishwasher Busser faxed updates to [facility], [facility], and [facility]. The patient's daughter, Delmy contacted this SW inquiring about a bedside commode. SW informed Delmy that insurance does not cover bedside commodes. There are no additional needs at this time.
[2020-09-03 17:00] LABS: TB GOLD INTERPRETATION Indeterminate (Negative)
--- NOTE | 2020-09-03 17:00 | NUR ---
Pt with incontinent episode of urine, cleansed and changed. Pt continues to have intermittent productive cough with yellow sputum. No further needs reported. Call light in reach.
[2020-09-03 19:27] LABS: C-ANCA 10 U/mL (0-99)
--- NOTE | 2020-09-03 21:25 | NUR ---
pt resting in bed, alert and oriented. assessment completed and medications given per MAR. lung sounds are diminished in lower lobes, productive cough with yellow sputum. pt reports shortness of breath intermittently, currently on oxygen at 4 liters nasal cannula. pt denies any pain, no other needs at this time. will continue to monitor.
[2020-09-04 03:34] VITALS: BP 111/59; PULSE 98; TEMP 98.7
--- NOTE | 2020-09-04 05:48 | NUR ---
pt resting in bed, slept some during the night. pt stated that the noise of the airflow in the room makes it hard for her to sleep. called for any needs during the night. no other needs at this time.
[2020-09-04 06:09] LABS: MEAN CELL VOLUME 90 fl (80.0-100.0); MEAN CORPUSCULAR HGB CONC 34 g/dl (33.0-37.0); MEAN PLATELET VOLUME 9.8 fl (7.4-10.4); RED BLOOD COUNT 3.14 M/mm3 (4.10-5.30); REDCELL DISTRIBUTION WIDTH-CV 15.1 % (11.5-14.5)
[2020-09-04 06:17] LABS: HEMATOCRIT 28.4 % (37.0-47.0); HEMOGLOBIN 9.7 g/dl (12.5-16.0); MEAN CORPUSCULAR HEMOGLOBIN 31 pg (27.0-31.0); PLATELET COUNT 381 K/mm3 (130-400)
[2020-09-04 06:24] LABS: ALBUMIN 2.3 gm/dL (3.5-5.0); BILIRUBIN,TOTAL 0.4 mg/dL (0.0-1.0); CALCIUM 7.6 mg/dL (8.4-10.2); CREATININE, serum 1.04 (0.52-1.25); POTASSIUM 3.9 mmol/L (3.4-5.0)
[2020-09-04 06:41] LABS: INR 6.4 (0.8-3.0); PROTHROMBIN TIME 72.9 SECONDS (9.7-12.8)
[2020-09-04 07:35] VITALS: BP 147/82; PULSE 116; TEMP 98.7
[2020-09-04 08:03] LABS: BAND 6 % (0-10); EOSINOPHIL 2 % (0-4); LYMPHOCYTE 8 % (20.0-51.0); METAMYELOCYTE 4 % (0-0); MYELOCYTE 1 % (0-0); NEUTROPHILS 72 % (42.0-75.2); PLATELET ESTIMATE NORMAL (NORMAL)
--- NOTE | 2020-09-04 08:53 | NUR ---
Pt assessment complete. Pt is sitting up in bed upon entry, she is A/O x4. Her breathing is even and unlabored on 3L O2 via NC. She reports continued SOB and productive cough with yellow phlegm. She denies pain. No N/V. In isolation precautions. Abx infusing into PICC of RUE. No needs at this time.
--- NOTE | 2020-09-04 09:18 | NUR ---
Water Supply Engineer contacted Fany with [facility] to inquire about acceptance, left message.
[2020-09-04 11:45] VITALS: BP 104/58; PULSE 101; TEMP 97.7
--- NOTE | 2020-09-04 12:00 | NUR ---
Delivery Room Clerk faxed updates to [facility], [facility], and [facility]. SW will continue to follow.
--- NOTE | 2020-09-04 14:00 | NUR ---
Pt incontinent of urine, offered patient to get up to BSC. She declines. External catheter offered and placed. Will continue to monitor.
--- NOTE | 2020-09-04 15:06 | NUR ---
System Development Engineer staffed with Hospitalist regarding the patient's discharge plan. Hospitalist reports the patient does not want to go to post acute rehab and the patient did not want to do a Covid test for placement. SW staffed with the patient's nurse. The patient has not been out of bed to toilet and is incontinent. Physical therapy has not been able to work with the patient due to her high INR. SW contacted the patient via room phone. SW discussed the patient's discharge. SW informed the patient due to her current condition and her not getting out of bed she is not safe to go home. This SW is recommending post acute rehab as the safest discharge disposition. The patient states she will work on getting up and being independent in the room. SW contacted the patient daughter, Delmy to discuss the above information. Delmy to discuss it with the patient. SW collaborated the above information with the patient's nurse.
[2020-09-04 15:24] VITALS: BP 105/54; PULSE 104; TEMP 98.4
--- NOTE | 2020-09-04 18:45 | NUR ---
Discussed with patient possible need for rehab, patient adamantly refusing saying she can manage at home. Patient encouraged to get up and use BSC with assistance but she continues to refuse stating staff cannot get into the room quick enough. She reports the urge to urinate hits quickly and she has to go right away. When patient told she would have to be able to get out of bed in order to go home she requests a walker and help, agreeable to come in and assist patient when she again states but no one can make it in time. Continues to have external catheter at this time. Currently on 3L O2 via AR. Report given to CRYSTAL Barkley.
[2020-09-04 18:55] VITALS: BP 112/57; PULSE 99; TEMP 98.4
--- NOTE | 2020-09-04 19:57 | NUR ---
Resting in bed. Assessment complete. Lungs diminished throughout. Heart sounds normal. bowels active x4. Pulses preset throughout. Bilateral lower extremity edema +2. PICC to right upper flushed without complications. Reports 7/10 ABD pain from cough. Provided with PRN tylenol. Denies other needs at this time. Call light in reach.
[2020-09-04 23:00] VITALS: BP 98/52; PULSE 100; TEMP 97.8
--- NOTE | 2020-09-05 | NUR ---
Patient provided with tylenol for pain. Denies needs call light in reach.
--- NOTE | 2020-09-05 02:00 | NUR ---
Resting in bed. Denies needs. Call light in reach.
[2020-09-05 03:44] VITALS: BP 95/56; PULSE 96; TEMP 97.4
--- NOTE | 2020-09-05 05:09 | NUR ---
Patient required x2 doses of tylenol for pain control throughout night. Otherwise uneventful night. Resting in bed this AM. Call light in reach.
[2020-09-05 06:50] LABS: HEMATOCRIT 27.6 % (37.0-47.0); HEMOGLOBIN 9.4 g/dl (12.5-16.0); MEAN CELL VOLUME 92 fl (80.0-100.0); MEAN CORPUSCULAR HEMOGLOBIN 31 pg (27.0-31.0); MEAN CORPUSCULAR HGB CONC 34 g/dl (33.0-37.0); MEAN PLATELET VOLUME 9.9 fl (7.4-10.4); PLATELET COUNT 429 K/mm3 (130-400)
[2020-09-05 06:58] LABS: INR 3.4 (0.8-3.0)
--- NOTE | 2020-09-05 07:01 | NUR ---
Report given to CRYSTAL Blakely
[2020-09-05 07:07] LABS: ALBUMIN 2.3 gm/dL (3.5-5.0); BILIRUBIN,TOTAL 0.6 mg/dL (0.0-1.0); CALCIUM 7.9 mg/dL (8.4-10.2); CREATININE, serum 1.09 (0.52-1.25); POTASSIUM 3.8 mmol/L (3.4-5.0)
[2020-09-05 07:25] VITALS: BP 103/52; PULSE 99; TEMP 97.6
[2020-09-05 07:54] LABS: BAND 8 % (0-10); EOSINOPHIL 2 % (0-4); LYMPHOCYTE 3 % (20.0-51.0); METAMYELOCYTE 6 % (0-0); MYELOCYTE 1 % (0-0); NEUTROPHILS 74 % (42.0-75.2)
[2020-09-05 07:55] LABS: PLATELET ESTIMATE NORMAL (NORMAL)
--- NOTE | 2020-09-05 09:00 | NUR ---
PT AOX4, BROUGHT IN MEDICATION, ASSESSMENT PERFORMED, MEDICATIONS GIVEN, PT ATE 100% OF BREAKFAST, PT REPORTS SLIGHT BACK PAIN DUE TO PRODUCTIVE COUGH. LAST SPUTUM COLLECTED, PT IN AIRBORNE PRECAUTIONS, NO OTHER NEEDS AT THIS TIME.
[2020-09-05 11:18] VITALS: BP 117/63; PULSE 109; TEMP 98.7
[2020-09-05 16:08] VITALS: BP 104/50; PULSE 102; TEMP 98.7
--- NOTE | 2020-09-05 17:02 | NUR ---
Jira Administrator collaborated with Hospitalist who advised after working with PT, patient is now agreeable to SNF. SW also received a message from patient's daughter, Steve who advised she already threw away the application to [facility] and would need a new one as she is in agreement that patient needs SNF placement. ERIK contacted Prerna at [facility] who advised they would need application to be completed before officially accepting because at this time, their regional team has to review applications. Prerna states she will get in contact with Steve to provide additional application. ERIK contacted Annmarie at [facility] who advised they can accept with a second negative COVID test and accepting physician from [facility]. ERIK collaborated with Hospitalist who will order second COVID swab. ERIK will continue to follow.
--- NOTE | 2020-09-05 17:52 | NUR ---
PT REPORTING PAIN IN BACK AND AIYANA LEGS DURING SHIFT, ZOSYN GIVEN, PT COMFORTABLE AT THIS TIME, PT EATING DINNER, CALL LIGHT AND PHONE AT BEDSIDE, IV INT, WATER CUP FULL, OVERALL UNEVENTFUL SHIFT. NO OTHER NEEDS.
[2020-09-05 20:19] VITALS: BP 119/61; PULSE 103; TEMP 98.4
--- NOTE | 2020-09-05 20:33 | NUR ---
Resting in bed. Assessment complete. Lungs diminshed throughout. Heart sounds normal. Bowels active x4. Pulses present throughout. Bilateral lower extremity edema +1. PICC to right upper flushed without complications. Reported 7/10 back/neck/leg pain. Bruising to left ankle and right inner arm present. Provided with PRN tylenol. Denies other needs at this time. Call light in reach.
[2020-09-06] VITALS (7 sets, daily range): BP systolic 94–116; BP diastolic 48–72; PULSE 97–108; TEMP 98–98.5
--- NOTE | 2020-09-06 00:17 | NUR ---
Resting in bed. Purwick changed. Denies needs. Call light in reach.
--- NOTE | 2020-09-06 05:10 | NUR ---
Patient had uneventful night. Incontinent of bowel. Cares provided. Received x1 dose of tylenol for pain control. Resting in bed this AM. Denies needs. Call light in reach.
[2020-09-06 06:05] LABS: MEAN CELL VOLUME 92 fl (80.0-100.0); MEAN CORPUSCULAR HGB CONC 33 g/dl (33.0-37.0); MEAN PLATELET VOLUME 9.6 fl (7.4-10.4); PLATELET COUNT 506 K/mm3 (130-400); RED BLOOD COUNT 2.99 M/mm3 (4.10-5.30)
[2020-09-06 06:07] LABS: HEMATOCRIT 27.4 % (37.0-47.0); HEMOGLOBIN 9.1 g/dl (12.5-16.0); MEAN CORPUSCULAR HEMOGLOBIN 30 pg (27.0-31.0)
[2020-09-06 06:12] LABS: INR 2.8 (0.8-3.0); PROTHROMBIN TIME 31.8 SECONDS (9.7-12.8)
[2020-09-06 06:17] LABS: CALCIUM 7.6 mg/dL (8.4-10.2); CREATININE, serum 1.11 (0.52-1.25); POTASSIUM 3.8 mmol/L (3.4-5.0)
[2020-09-06 06:22] LABS: BAND 6 % (0-10); EOSINOPHIL 4 % (0-4); LYMPHOCYTE 7 % (20.0-51.0); METAMYELOCYTE 7 % (0-0); MYELOCYTE 1 % (0-0); NEUTROPHILS 71 % (42.0-75.2); PLATELET ESTIMATE INCREASED (NORMAL)
--- NOTE | 2020-09-06 07:19 | NUR ---
Report given to CRYSTAL Bay
--- NOTE | 2020-09-06 09:44 | NUR ---
Assessment complete. Patient laying in bed, awake and alert on entry. Reports pain in her legs that is not new for her. PICC is CD&I, flushed and aye well. Patient states she feels okay. Lungs were very difficult to ascultate. She is aware of her plan of care at this time. Worked ith PT this morning. External catheter in place. No other needs expressed at this time. Call light is is reach.
[2020-09-06 13:46] LABS: HISTOPLASMA ID Negative (Negative); HISTOPLASMA MYCELIAL Negative (Negative); HISTOPLASMA YEAST Negative (Negative)
--- NOTE | 2020-09-06 16:39 | NUR ---
Patient has had an uneventful shift. Patient incontinent of urine twice through the day, requested to be changed. Reported the pain in her legs which is chronic. PICC site remains CD&I, IV zosyn running well. No major changes through the day. Will continue to monitor. Call light in reach.
--- NOTE | 2020-09-06 20:00 | NUR ---
Resting in bed. Assessment complete. Fine crackles and diminished throughout all lung thomson. Heart sounds normal. Bowels active x4. Pulses present throughout. No edema noted. PICC to right upper arm flushed without complications. Reports ABD and back pain. Provided with PRN tylenol. Incontinent of urine. Cares provided. Denies other needs at this time. Call light in reach.
--- NOTE | 2020-09-06 23:27 | NUR ---
Reports 10/10 back and ABD pain from cough with leg pains. Provided with PRN tylenol at this time. call light in reach.
--- NOTE | 2020-09-07 01:40 | NUR ---
Resting in bed. Denies needs. Call light in reach.
[2020-09-07 04:25] VITALS: BP 105/55; PULSE 101; TEMP 97.7
--- NOTE | 2020-09-07 06:13 | NUR ---
Patient required tylenol for pain control throughout night. Incontinent of bowel and bladder during night. Cares provided. Otherwise uneventful night. Resting in bed this AM. Call light in reach.
[2020-09-07 06:37] LABS: MEAN CELL VOLUME 93 fl (80.0-100.0); MEAN CORPUSCULAR HGB CONC 34 g/dl (33.0-37.0); MEAN PLATELET VOLUME 9.4 fl (7.4-10.4); RED BLOOD COUNT 3.11 M/mm3 (4.10-5.30)
--- NOTE | 2020-09-07 06:45 | NUR ---
Report given to CRYSTAL Morris
[2020-09-07 06:47] LABS: INR 1.6 (0.8-3.0); PROTHROMBIN TIME 18.1 SECONDS (9.7-12.8)
[2020-09-07 07:04] LABS: HEMATOCRIT 28.8 % (37.0-47.0); HEMOGLOBIN 9.7 g/dl (12.5-16.0); MEAN CORPUSCULAR HEMOGLOBIN 31 pg (27.0-31.0); PLATELET COUNT 610 K/mm3 (130-400)
[2020-09-07 07:28] LABS: BAND 6 % (0-10); LYMPHOCYTE 7 % (20.0-51.0); METAMYELOCYTE 1 % (0-0); MYELOCYTE 1 % (0-0); NEUTROPHILS 82 % (42.0-75.2)
[2020-09-07 07:29] VITALS: BP 114/63; PULSE 108; TEMP 98.4
[2020-09-07 07:29] LABS: PLATELET ESTIMATE INCREASED (NORMAL)
[2020-09-07 12:15] VITALS: BP 115/60; PULSE 99; TEMP 98.2
--- NOTE | 2020-09-07 13:00 | NUR ---
assessment completed, alert/oriented, vital signs stable, denies pain or discomfort, cough is improving per patient report, she does still have some crackles to her lung bases and is diminished, upper lung thomson clear, encouraged patient to try and get up and work with PT, she is not do a very good job of working with therpaies and is lacking in motivation, heart Regular but still a little tachycardic, she has been incontinent of bowel and bladder/ stool sent for C-diff and GI panel and it has came back negative or all tests
[2020-09-07 14:16] LABS: CLOSTRIDIUM DIFF A/B NEG; CLOSTRIDIUM DIFF A/B INTERP No C.diff present
--- NOTE | 2020-09-07 14:38 | NUR ---
ERIK faxed over referrals to [facility], and [facility] as directed.
[2020-09-07 15:23] LABS: COCCIDIOIDES AB IGG Negative (Negative); COCCIDIOIDES AB IGM Negative (Negative); COCCIDIOIDES CF Negative (Negative)
[2020-09-07 15:36] VITALS: BP 122/60; PULSE 113; TEMP 98.5
--- NOTE | 2020-09-07 20:00 | NUR ---
Pt a/o x4. No c/o pain or discomfort. States feeling tired. Requested pain meds for chronic neck and back pain. PRN Tylenol and scheduled meds administered. PIC to MARII intact, flushed, dressing CDI. Tele monitor in place. Incontinent of BB, pt cleaned and changed. Sacral and hal area reddened, barrier cream applied. Needs met at this time. Call light within reach.
[2020-09-07 20:06] VITALS: BP 107/59; PULSE 103; TEMP 98.4
[2020-09-07 23:15] VITALS: BP 98/53; PULSE 99; TEMP 98.5
[2020-09-08 05:13] VITALS: BP 102/56; PULSE 99; TEMP 99.1
--- NOTE | 2020-09-08 06:40 | NUR ---
Pt made no complaints throughout this shift. Able to voice when she needs to be changed. Meds administered. Caps changed to PICC x2. Needs met. Call light within reach.
--- NOTE | 2020-09-08 06:46 | NUR ---
Report given to CRYSTAL Alvarado.
[2020-09-08 06:54] LABS: MEAN CELL VOLUME 92 fl (80.0-100.0); MEAN CORPUSCULAR HGB CONC 34 g/dl (33.0-37.0); MEAN PLATELET VOLUME 9.3 fl (7.4-10.4); PLATELET COUNT 664 K/mm3 (130-400); RED BLOOD COUNT 2.72 M/mm3 (4.10-5.30); REDCELL DISTRIBUTION WIDTH-CV 15.2 % (11.5-14.5)
[2020-09-08 06:56] LABS: PROTHROMBIN TIME 22.8 SECONDS (9.7-12.8)
[2020-09-08 06:59] LABS: HEMATOCRIT 25.1 % (37.0-47.0); HEMOGLOBIN 8.4 g/dl (12.5-16.0); MEAN CORPUSCULAR HEMOGLOBIN 31 pg (27.0-31.0)
[2020-09-08 07:03] LABS: ALBUMIN 2.5 gm/dL (3.5-5.0); BILIRUBIN,TOTAL 0.6 mg/dL (0.0-1.0); CALCIUM 7.9 mg/dL (8.4-10.2); CREATININE, serum 1.1 (0.52-1.25); POTASSIUM 3.4 mmol/L (3.4-5.0); TOTAL PROTEIN 5.6 gm/dL (6.4-8.2)
[2020-09-08 07:04] VITALS: BP 120/59; PULSE 103; TEMP 98.8
--- NOTE | 2020-09-08 07:17 | NUR ---
SUBWAY OPERATOR in room to clean and change pt per pt's request.
[2020-09-08 07:45] LABS: PATHOLOGY DIFF REVIEW OK
--- NOTE | 2020-09-08 08:00 | NUR ---
Assessment complete. Pt resting in bed, A&O x 3, reports slight discomfort to lower abd and irritation to bottom from loose stools. IV abx infusing to right upper arm PICC without s/s of complications. Pt continues to have incontinent loose stools causing redness to bottom. Moisture barrier cream being used. No further needs reported. Call light in reach.
[2020-09-08 08:18] LABS: BAND 8 % (0-10); EOSINOPHIL 3 % (0-4); LYMPHOCYTE 8 % (20.0-51.0); METAMYELOCYTE 3 % (0-0); NEUTROPHILS 77 % (42.0-75.2); PLATELET ESTIMATE INCREASED (NORMAL)
[2020-09-08 11:07] VITALS: BP 120/62; PULSE 102; TEMP 97.8
--- NOTE | 2020-09-08 11:59 | NUR ---
ERIK contacted Fany at [facility] to follow up on status of the application. Fany states that she brought an application to the patient's daughter, Steve, on Tuesday. She states that she has not heard back from Steve yet and that they would need the application first before they could take her. ERIK then contacted and followed up with Steve. Steve confirms that she does have the application. She states that she plans on coming up to the hospital today to complete the application with the patient and have the patient sign. She states she will then return the application back to Fany. Steve states that they are in agreement with the patient going to [facility]. ERIK faxed updates to [facility] and [facility] [place]. ERIK to continue to follow.
--- NOTE | 2020-09-08 15:00 | NUR ---
PICC intact right upper arm. Sterile dressing change done with insertion site cleansed with ChloraPrep 1, chlorhexidine impregnated disc applied, skin prep, StatLock, and Tegaderm applied. No signs or symptoms of IV complications noted. No concerns voiced. Arm wrapped with Jacek to proct catheter.
[2020-09-08 15:18] VITALS: BP 113/55; PULSE 103; TEMP 98.6
--- NOTE | 2020-09-08 16:04 | NUR ---
Vancomycin Initial Dosing Pharmacy Note Ordering provider: MD ROSA MARIA Indication/duration: cavitary lung lesions/PNA LABS: WBC 19.4, SCr 1.1, CrCl 39 Recommendation: vancomycin 17 mg/kg Loading dose: 1.5 grams Maintenance dose: 1.25 grams every 24 hours Trough goal: 15-20 ug/mL. trough before 4th dose. 09/11 @ 9032
--- NOTE | 2020-09-08 19:00 | NUR ---
Pt with another incontinent episode of loose stool, making 6 total for this shift, all medium in size, brown, mucous character. Redness to bottom improving with barrier cream. Report given to CRYSTAL Gaviria. No further needs reported. Call light in reach.
[2020-09-08 19:42] VITALS: BP 93/50; PULSE 94; TEMP 98.7
--- NOTE | 2020-09-08 21:40 | NUR ---
Pt assessment completed and documented. Pt resting in bed at this time. Alert and oriented x4. PRN tylenol given for 10/10 generalized "nerve pain". PICC to RUE CDI with good blood return. Brief changed at this time due to urinary incontinence. Pt denies any needs/concerns. Call light within reach. Bed alarm on. Will continue to monitor.
[2020-09-09 00:51] VITALS: BP 97/46; PULSE 88; TEMP 99.9
[2020-09-09 03:11] VITALS: BP 106/52; PULSE 91; TEMP 98.3
--- NOTE | 2020-09-09 06:01 | NUR ---
Pt had uneventful night. PRN tylenol given for reports of generalized pain. Temperature 99.9 overnight. PICC to RUE CDI with good blood return. Pt incontinent of urine and stool this AM. Incontinent care provided. Currently resting in bed. Denies any needs/concerns. Call light within reach. Bed alarm on.
[2020-09-09 06:40] LABS: MEAN CELL VOLUME 92 fl (80.0-100.0); MEAN CORPUSCULAR HGB CONC 34 g/dl (33.0-37.0); MEAN PLATELET VOLUME 9.2 fl (7.4-10.4); PLATELET COUNT 619 K/mm3 (130-400); RED BLOOD COUNT 2.76 M/mm3 (4.10-5.30); REDCELL DISTRIBUTION WIDTH-CV 15.3 % (11.5-14.5)
[2020-09-09 06:43] LABS: HEMATOCRIT 25.5 % (37.0-47.0); HEMOGLOBIN 8.6 g/dl (12.5-16.0); MEAN CORPUSCULAR HEMOGLOBIN 31 pg (27.0-31.0)
[2020-09-09 06:54] LABS: CALCIUM 7.6 mg/dL (8.4-10.2); CREATININE, serum 1.06 (0.52-1.25)
[2020-09-09 07:04] LABS: POTASSIUM 3.6 mmol/L (3.4-5.0)
[2020-09-09 07:55] VITALS: BP 121/59; PULSE 100; TEMP 98.4
--- NOTE | 2020-09-09 08:02 | NUR ---
Pt awake an alert upon entry, no C/O pain currently, shift assessments complete, left Pt call light in reach, bed in lowest position.
--- NOTE | 2020-09-09 09:46 | NUR ---
The clinical team is recommending [facility] for the patient. They anticipate long-term antibiotics. Referral faxed to Jonn at [facility]. ERIK attempted to contact the patient's daughter, Steve, to discuss [facility]. ERIK left her a voicemail.
--- NOTE | 2020-09-09 12:55 | NUR ---
Jonn, at [facility], reports that the patient does qualify and that they would be able to accept the patient today. Jonn states that he will just need a copy of the patient's TB results, once received. ERIK notified the clinical team. The patient's daughter, Steve, arrived to the hospital. The patient is on airbourne precautions. ERIK contacted the patient's room phone to update the patient and daughter. The patient requested that SW call her daughter's cell phone. ERIK did this. ERIK was on speaker phone with the patient and daughter. ERIK discussed the benefits of [facility]. The patient and her daughter are agreeable to transferring to [facility] today. The patient is to discharge today, 09/09, to [facility] in [place]. Transportation was scheduled at 1400, via [facility]. ERIK notified the patient, her daughter (Steve), RN, and Jonn at [facility]. They were all agreeable to the time. ERIK also read the EMS Transfer Consent Form outloud to the patient, via phone. The patient verbalized understanding and gave ERIK approval to sign the form on her behalf. ERIK additional needs at this time.
--- NOTE | 2020-09-09 15:58 | NUR ---
Pt transferred to [facility], [facility], Pt left via [facility].
== END 2020-09-09 14:30 | DRG 871 ==
LOC: COL.ER 18:35 → MEDICAL 22:00 → ICU 09-01 15:23 → MEDICAL 09-02 13:39
PROVIDERS: Emergency Medicine; Hospitalist; Internal Medicine; Internal Medicine Pulmonary Disease; Nurse Practitioner Family; Physician Assistant; ADMIT Internal Medicine Pulmonary Disease
DX: A41.9 Sepsis, unspecified organism (principal); J96.01 Acute respiratory failure with hypoxia; J15.1 Pneumonia due to Pseudomonas; I21.A1 Myocardial infarction type 2; J44.1 Chronic obstructive pulmonary disease with (acute) exacerbation; J44.0 Chronic obstructive pulmonary disease with (acute) lower respiratory infection; G93.40 Encephalopathy, unspecified; E87.1 Hypo-osmolality and hyponatremia; I50.22 Chronic systolic (congestive) heart failure; I11.0 Hypertensive heart disease with heart failure; E78.5 Hyperlipidemia, unspecified; Z20.828 Contact with and (suspected) exposure to other viral communicable diseases; F17.210 Nicotine dependence, cigarettes, uncomplicated; G62.9 Polyneuropathy, unspecified; D47.3 Essential (hemorrhagic) thrombocythemia; R19.7 Diarrhea, unspecified; Z79.01 Long term (current) use of anticoagulants; Z86.73 Personal history of transient ischemic attack (TIA), and cerebral infarction without residual deficits; Z86.711 Personal history of pulmonary embolism; Z86.718 Personal history of other venous thrombosis and embolism
CPT/HCPCS: 99223-AI; 99232-AI; 99233-AI; 99239; C1751; J0456; J0692; J0696; J1956; J2185; J2543; J2920; J2930; J3370; J3475; J7030; J7050; J7512; Q9967

== ENCOUNTER 2021-02-17 11:08 | Observation (INO) | payer MEDICARE, MEDICAID ==
[~2021-02-17] VITALS: Ht 170.2 cm; Wt 61.3 kg
[~2021-02-17 11:08] MED LIST changes: +COUMADIN 1010 MG/TAB PO; +DIOVAN 160MG160 MG PO; +NORCO 325 MG-7.1 TAB PO; +PROVENTIL0.09 MG/A1 IH
[2021-02-17 11:59] LABS: BASO % 0.2 % (0.0-2.0); EOS # 0.1 (0.0-0.7); EOS % 1.1 % (0-4.0); GRAN # 5.7 (1.4-6.5); GRAN % 69.9 % (42.2-75.2); HEMOGLOBIN 11.4 g/dl (12.5-16.0); LYMPH # 1.7 (1.2-3.4); LYMPH % 21.3 % (20.0-51.0); MEAN CELL VOLUME 95 fl (80.0-100.0); MEAN CORPUSCULAR HEMOGLOBIN 31 pg (27.0-31.0); MEAN CORPUSCULAR HGB CONC 32 g/dl (33.0-37.0); MEAN PLATELET VOLUME 9.8 fl (7.4-10.4); MONO # 0.6 (0.1-0.6); MONO % 7.1 % (1.7-9.3); PLATELET COUNT 356 K/mm3 (130-400); RED BLOOD COUNT 3.72 M/mm3 (4.10-5.30); REDCELL DISTRIBUTION WIDTH-CV 16.6 % (11.5-14.5)
[2021-02-17 12:00] LABS: HEMATOCRIT 35.3 % (37.0-47.0)
[2021-02-17 12:11] LABS: ALANINE AMINOTRANSFERASE 16 U/L (4-34); ALKALINE PHOSPHATASE 91 U/L (50-136); ANION GAP 8 mmol/L (7-16); AST,SGOT 33 U/L (15-37); BILIRUBIN,TOTAL 0.4 mg/dL (0.0-1.0); BLOOD UREA NITROGEN 12 mg/dL (7-17); C-REACTIVE PROTEIN 0.7 mg/dL (0.0-0.9); CALCIUM 8.9 mg/dL (8.4-10.2); CARBON DIOXIDE 23 mmol/L (22-30); CHLORIDE 100 mmol/L (98-107); CREATININE, serum 0.87 (0.52-1.25); GLUCOSE 105 mg/dL (74-106); POTASSIUM 4.3 mmol/L (3.4-5.0); SODIUM 131 mmol/L (137-145); TOTAL PROTEIN 7.7 gm/dL (6.4-8.2)
[2021-02-17 12:21] LABS: TROPONIN-I < 0.012 ng/mL (0.000-0.035)
[2021-02-17 13:24] LABS: INR 1.8 (0.8-3.0); PROTHROMBIN TIME 20.3 SECONDS (9.7-12.8)
[2021-02-17] MEDS ORDERED: COUMADIN 6MG6 MG/TAB PO (14:56)
[2021-02-17] MEDS ORDERED: GRALISE600 MG PO (14:59)
[2021-02-17] MEDS ORDERED: SPIRIVA RE2.5 MCG/Ac IH (15:00)
[2021-02-17 15:45] LABS: COLLECTION METHOD CLEAN CATCH
[2021-02-17 16:01] LABS: PH 8 (5-8); SQUAMOUS EPITHELIAL None Seen /hpf; URINE APPEARANCE Clear; URINE BACTERIA None Seen /hpf; URINE BILIRUBIN Negative (NEGATIVE); URINE BLOOD 2+ (NEGATIVE); URINE COLOR Straw; URINE GLUCOSE Negative (NEGATIVE); URINE KETONE Negative (NEGATIVE); URINE LEUKOCYTE ESTERASE Negative (NEGATIVE); URINE NITRATE Negative (NEGATIVE); URINE PROTEIN(semi-quant) Negative (NEGATIVE); URINE UROBILINOGEN Negative (NEGATIVE)
[2021-02-17] MEDS ORDERED: NORCO 325 MG-7.1 TAB PO (17:54)
[2021-02-17 18:18] VITALS: BP 116/64; PULSE 94; TEMP 98.1
--- NOTE | 2021-02-17 18:47 | NUR ---
Admission assessment completed, alert/oriented, vital signs stable, denies pain, reports general weakness/ malaise that has been getting worse for a couple weeks, she is an everyday smoker/ lungs diminished but CTA, she is wearing 2L. o2 and this is baseline for her at home as well, heart RRR/distal pulses are palpable, I have reviewed her home meds/allergies/phamacy and made updates as needed, patient denies other needs and call light in reach
[2021-02-17 19:48] VITALS: BP 97/64; PULSE 77; TEMP 98.7
[2021-02-17 19:49] VITALS: BP 121/79; PULSE 84
[2021-02-17 19:51] VITALS: BP 131/74; PULSE 105
--- NOTE | 2021-02-17 19:55 | NUR ---
BAM Tapia notified of orthostatic BP results. No new orders received.
--- NOTE | 2021-02-17 20:00 | NUR ---
Report received, assumed care for cnc machinist 2nd shift. Assessment complete. VS stable. A&Ox3. Denies pain/nausea/shortness of breath. Admission orders initiated. Plan of care discussed for this shift to include HS meds/O2@2L/NC/Ortho BPs/calling for questions/concerns. Verbalizes understanding/denies needs. Call light in reach. Will monitor.
[2021-02-17 22:52] VITALS: BP 156/67; PULSE 84; TEMP 98.1
--- NOTE | 2021-02-18 00:30 | NUR ---
Resting eyes closed. No s/s of pain noted. Will monitor.
[2021-02-18 03:14] VITALS: BP 120/55; PULSE 75; TEMP 97.7
--- NOTE | 2021-02-18 06:30 | NUR ---
Rested well this shift-uneventful night. Denied chest pain/shortness of breath/nausea. Up out of bed with 1 assist to commode PRN. Tele showed SR to ST. IV to left AC with NS@75mls/hr. Denies current questions/concerns. Call light in reach. WIll monitor.
[2021-02-18 07:06] LABS: BASO % 0.4 % (0.0-2.0); EOS # 0.2 (0.0-0.7); EOS % 3.5 % (0-4.0); GRAN # 2.3 (1.4-6.5); GRAN % 46.3 % (42.2-75.2); LYMPH # 1.8 (1.2-3.4); LYMPH % 37.7 % (20.0-51.0); MEAN CELL VOLUME 96 fl (80.0-100.0); MEAN CORPUSCULAR HGB CONC 32 g/dl (33.0-37.0); MONO # 0.6 (0.1-0.6); MONO % 11.7 % (1.7-9.3); PLATELET COUNT 284 K/mm3 (130-400); RED BLOOD COUNT 3.11 M/mm3 (4.10-5.30); REDCELL DISTRIBUTION WIDTH-CV 16.6 % (11.5-14.5)
[2021-02-18 07:08] LABS: HEMATOCRIT 29.8 % (37.0-47.0); HEMOGLOBIN 9.6 g/dl (12.5-16.0); MEAN CORPUSCULAR HEMOGLOBIN 31 pg (27.0-31.0)
[2021-02-18 07:16] LABS: INR 1.7 (0.8-3.0); PROTHROMBIN TIME 19.2 SECONDS (9.7-12.8)
[2021-02-18 07:17] LABS: CALCIUM 7.9 mg/dL (8.4-10.2); CREATININE, serum 0.94 (0.52-1.25); MAGNESIUM 2.1 mg/dL (1.6-2.3); POTASSIUM 4.3 mmol/L (3.4-5.0)
[2021-02-18 08:01] VITALS: BP 132/61; PULSE 85; TEMP 97.7
[2021-02-18] MEDS ORDERED: CYMBALTA 30MG30 MG PO (08:30)
[2021-02-18] MEDS ORDERED: TOPROL XL 25MG25 MG PO (11:10)
[2021-02-18 12:06] VITALS: BP 118/67; PULSE 74; TEMP 98.9
--- NOTE | 2021-02-18 13:21 | NUR ---
First visit from the hammer setter. No needs right now.
--- NOTE | 2021-02-18 14:31 | NUR ---
Well Logging Operator Mud Analysis collaborated with LESLIE Man who advised she is recommending SNF for patient, however patient is not agreeable to this plan. SW then spoke with Hospitalist who advised patient is also declining home health services and plans to return home upon discharge. SW met with patient to discuss discharge planning. Patient lives in [place] with her daughter, Ledy who goes to [facility] services during the day. Patient states her other daughter, Steve comes to stay with her when she needs some additional help. Patient sees Dr. Adorno for primary care and obtains medications from [facility] with no difficulties. Patient has a cane, front wheeled walker, and four wheeled walker at home. Patient also has continuous oxygen from [facility]. SW discussed PT recommendation for post acute rehab. Patient immediately states she is not interested. Patient advised she went to [facility] recently and had to stay for a month, which she was not happy about. SW tried to advise patient that SNF would be different from [facility], however patient states she was not interested in any type of rehab. SW tried to talk about Home Health services but patient declined. Patient states she has had HH services in the past and knows all the exercises to do. Patient states she will return home upon discharge. Patient has Advance Directives in EMR which designate her children Steve (ph#[phone]) and Phil (ph#[phone]) as DPOA-HC. SW contacted patient's daughter, Steve to review discharge plan. Steve feels patient would benefit from post acute rehab or HH but that patient is too stubborn and refuses. SW encouraged Steve to speak with patient about this and talked about the benefits of having at the very least, HH services. Discharge Plan: Home (Patient declined post acute rehab and HH services)
[2021-02-18 16:45] VITALS: BP 140/60; PULSE 75; TEMP 98.6
[2021-02-18 19:44] VITALS: BP 142/80; PULSE 93; TEMP 97.9
--- NOTE | 2021-02-18 20:00 | NUR ---
Report received, assumed care for overnight associate. Assessment complete. VS stable. A&Ox3. Denies nausea/shortness of breath. O2@@L/NC. States "I am tired of these shakes." Rating pain 8/10 to left side/back/leg-described as constant throbbing-hydrocodone given per dr order. Plan of care discussed for this shift to include HS meds/pain meds/Neuro checks/calling for questions/concerns. Verbalizes understanding/denies needs. Call light in reach. Will monitor.
[2021-02-19] VITALS: BP 146/71; PULSE 84; TEMP 98.4
--- NOTE | 2021-02-19 05:30 | NUR ---
Rested well this shift after receiving hydrocodone for pain. O2 remained at 2L/NC with O2 saturations 99%. Denied nausea/shortness of breath. VS remained stable. INT to left AC flushes without difficulties. Denies current needs. Call light in reach. Will monitor.
[2021-02-19 05:38] VITALS: BP 143/78; PULSE 81; TEMP 97.5
[2021-02-19 06:43] LABS: MEAN CELL VOLUME 98 fl (80.0-100.0); MEAN CORPUSCULAR HGB CONC 32 g/dl (33.0-37.0); PLATELET COUNT 277 K/mm3 (130-400); RED BLOOD COUNT 3.03 M/mm3 (4.10-5.30); REDCELL DISTRIBUTION WIDTH-CV 16.6 % (11.5-14.5)
[2021-02-19 06:44] LABS: HEMATOCRIT 29.6 % (37.0-47.0); HEMOGLOBIN 9.5 g/dl (12.5-16.0); MEAN CORPUSCULAR HEMOGLOBIN 31 pg (27.0-31.0)
[2021-02-19 06:54] LABS: INR 1.9 (0.8-3.0); PROTHROMBIN TIME 21.6 SECONDS (9.7-12.8)
[2021-02-19 06:58] LABS: CALCIUM 8.1 mg/dL (8.4-10.2); CREATININE, serum 0.75 (0.52-1.25); POTASSIUM 4.2 mmol/L (3.4-5.0)
[2021-02-19 07:50] VITALS: BP 146/66; PULSE 85; TEMP 97.6
[2021-02-19] MEDS ORDERED: COUMADIN 1MG1 MG/TAB PO (08:56)
[2021-02-19] MEDS ORDERED: D3-5050000 IU PO (08:58)
[2021-02-19 11:09] VITALS: BP 145/67; PULSE 83; TEMP 97.7
--- NOTE | 2021-02-19 12:09 | NUR ---
Discharge instructions discussed with the patient, instructed to follow up with PCP and Neuro as scheduled, instructed to take meds as prescribed, dose increase to Coumading and to stop Metoporlol, IV and tele discontinued, patient leaving with her daughter, I personally escorted them out the door
--- NOTE | 2021-02-19 14:14 | NUR ---
Primary nurse was assisted with [id number] patient care by [facility] student Aydin Borrego and [facility] instructor Kenia Parish MSN, RN.
--- NOTE | 2021-02-19 15:03 | NUR ---
Grease Refiner Operator attended clinical rounds with the team and patient to discharge today. SW met with patient to review discharge plan. Patient again declined post acute rehab or home health services. Patient states she also has her granddaughter living with her who can assist as needed. SW made report to Adult Protective Services (intake #[id number]).
== END 2021-02-19 12:10 | disposition home or self-care (01) ==
LOC: COL.ER 11:08 → MEDICAL 16:16
PROVIDERS: Nurse Practitioner; ADMIT Family Medicine
DX: E87.1 Hypo-osmolality and hyponatremia (principal); R53.81 Other malaise; R53.1 Weakness; J44.9 Chronic obstructive pulmonary disease, unspecified; G62.9 Polyneuropathy, unspecified; E78.5 Hyperlipidemia, unspecified; I11.9 Hypertensive heart disease without heart failure; I82.509 Chronic embolism and thrombosis of unspecified deep veins of unspecified lower extremity; G45.9 Transient cerebral ischemic attack, unspecified; J96.11 Chronic respiratory failure with hypoxia; E55.9 Vitamin D deficiency, unspecified; D64.9 Anemia, unspecified; F17.210 Nicotine dependence, cigarettes, uncomplicated; H81.10 Benign paroxysmal vertigo, unspecified ear; Z98.51 Tubal ligation status; Z90.89 Acquired absence of other organs; Z79.01 Long term (current) use of anticoagulants; Z98.890 Other specified postprocedural states; Z79.899 Other long term (current) drug therapy; Z88.8 Allergy status to other drugs, medicaments and biological substances; Z86.73 Personal history of transient ischemic attack (TIA), and cerebral infarction without residual deficits; Z80.41 Family history of malignant neoplasm of ovary; Z80.1 Family history of malignant neoplasm of trachea, bronchus and lung; Z80.42 Family history of malignant neoplasm of prostate
CPT/HCPCS: 99223-AI; 99233-AI; 99239; G0378; J1650; J7030; Q9967

== ENCOUNTER 2022-06-19 22:29 | Inpatient (IN) | payer MEDICARE, MEDICAID ==
[~2022-06-19] VITALS: Ht 172.7 cm; Wt 66.7 kg
[~2022-06-19 22:29] MED LIST changes: +COUMADIN 1MG1 MG/TAB PO; +COUMADIN 6MG6 MG/TAB PO; +CYMBALTA 30MG30 MG PO; +D3-5050000 IU PO; +SPIRIVA RE2.5 MCG/Ac IH; +TOPROL XL 25MG25 MG PO
[2022-06-19 22:48] LABS: BASO % 0.3 % (0.0-2.0); EOS # 0.2 K/mm3 (0.0-0.7); EOS % 1.9 % (0.0-4.0); GRAN # 6.8 K/mm3 (1.4-6.5); GRAN % 68.8 % (42.2-75.2); HEMOGLOBIN 11.1 g/dl (12.5-16.0); LYMPH # 2.1 K/mm3 (1.2-3.4); LYMPH % 21.1 % (20.0-51.0); MEAN CELL VOLUME 96 fl (80.0-100.0); MEAN CORPUSCULAR HEMOGLOBIN 32 pg (27-31); MEAN CORPUSCULAR HGB CONC 33 g/dl (33.0-37.0); MEAN PLATELET VOLUME 9.6 fl (7.4-10.4); MONO # 0.7 K/mm3 (0.1-0.6); MONO % 7.2 % (1.7-9.3); PLATELET COUNT 319 K/mm3 (130-400); RED BLOOD COUNT 3.48 M/mm3 (4.10-5.30)
[2022-06-19 22:50] LABS: HEMATOCRIT 33.3 % (37.0-47.0)
[2022-06-19 22:55] LABS: INR 2.6 (0.8-3.0); PROTHROMBIN TIME 29.6 SECONDS (9.7-12.8)
[2022-06-19] MEDS ORDERED: BONINE25 MG PO (22:58)
[2022-06-19 23:04] LABS: ALBUMIN 3.3 gm/dL (3.4-4.8); BILIRUBIN,TOTAL 0.3 mg/dL (0.2-1.2); CALCIUM 8.6 mg/dL (8.4-10.2); CREATININE, serum 1.08 mg/dL (0.57-1.11); POTASSIUM 3.9 mmol/L (3.5-4.5); TOTAL PROTEIN 6.7 gm/dL (6.2-8.1)
[2022-06-19] MEDS ORDERED: DIOVAN 80MG80 MG PO (23:06)
[2022-06-20] VITALS (7 sets, daily range): BP systolic 110–144; BP diastolic 53–68; PULSE 81–99; TEMP 97.6–98.7
[2022-06-20 08:03] LABS: BASO # 0.1 K/mm3 (0.0-0.2); BASO % 0.5 % (0.0-2.0); EOS # 0.1 K/mm3 (0.0-0.7); EOS % 0.6 % (0.0-4.0); GRAN # 8.6 K/mm3 (1.4-6.5); GRAN % 79.5 % (42.2-75.2); HEMOGLOBIN 12.1 g/dl (12.5-16.0); LYMPH # 1.3 K/mm3 (1.2-3.4); LYMPH % 11.8 % (20.0-51.0); MEAN CELL VOLUME 98 fl (80.0-100.0); MEAN CORPUSCULAR HEMOGLOBIN 32 pg (27-31); MEAN CORPUSCULAR HGB CONC 33 g/dl (33.0-37.0); MEAN PLATELET VOLUME 10.7 fl (7.4-10.4); MONO # 0.8 K/mm3 (0.1-0.6); MONO % 7.1 % (1.7-9.3); PLATELET COUNT 290 K/mm3 (130-400); RED BLOOD COUNT 3.77 M/mm3 (4.10-5.30); REDCELL DISTRIBUTION WIDTH-CV 14.2 % (11.5-14.5)
[2022-06-20 08:04] LABS: INR 2.5 (0.8-3.0); PROTHROMBIN TIME 28.9 SECONDS (9.7-12.8)
[2022-06-20 08:07] LABS: CALCIUM 8.9 mg/dL (8.4-10.2); CREATININE, serum 1.01 mg/dL (0.57-1.11); MAGNESIUM 2.2 mg/dL (1.6-2.6); POTASSIUM 4.4 mmol/L (3.5-4.5)
[2022-06-20 08:37] LABS: HEMATOCRIT 36.8 % (37.0-47.0)
--- NOTE | 2022-06-20 09:00 | NUR ---
Pt having quite a bit of pain this morning. PRN pain medications given. Educated on room service and assisted with ordering breakfast. Pt stated that she did not get much sleep last night. Unable to reposition pt due to severe pain. Pt is aware that she will not have surgery today due to the Coumadin that she takes.
[2022-06-20 12:51] LABS: COLLECTION METHOD CATHETER
--- NOTE | 2022-06-20 12:53 | NUR ---
SW met with patient to complete intake. Patient states that she lives in [place], [place] with daughter. DPOA/HC is Steve Gardner [phone] and son Phil Yusuf [phone] who was present during intake. Patient states that she uses a cane, is independent with ADL's, and does not utilize HH services at this time. PCP is Dr. Adorno, and pharmacy is [facility]. Patient staes she plans to return to her home upon DC. ERIK will continue to follow. DC plan: home with daughter
[2022-06-20 12:59] LABS: MUCOUS Present (NOT PRESENT); SQUAMOUS EPITHELIAL 0-2 /hpf (0-10); URINE APPEARANCE Clear (CLEAR/HAZY); URINE BACTERIA None Seen /hpf (NONE SEEN); URINE COLOR Yellow (YELLOW); URINE RBC >50 /hpf (0-2)
[2022-06-20 13:00] LABS: PH 6 (5-8); URINE BLOOD 3+ (NEGATIVE); URINE GLUCOSE Negative (NEGATIVE); URINE KETONE Negative (NEGATIVE); URINE NITRATE Negative (NEGATIVE); URINE PROTEIN(semi-quant) 1+ (NEGATIVE); URINE UROBILINOGEN Negative (NEGATIVE)
--- NOTE | 2022-06-20 15:00 | NUR ---
Pt has been sleeping most of the afternoon. She did not eat any lunch as she stated she was not hungry and was too tired. Repositioned pt although she did have quite a bit of pain. Not giving narcotics due to the drowsiness.
--- NOTE | 2022-06-20 18:45 | NUR ---
THE PATIENT IS LAYING IN BED AT THIS TIME VERY TEARFUL. PT HAS JUST RCVD PAIN MEDICATION. INFORMED THE PATIENT TO CALL IF THE PAIN IS NOT SUBSIDING WITH THE MEDICATION GIVEN. PATIENT IS AWARE. SON IS AT BEDSIDE. THERE IS A SKIN TEAR TO THE PATIENT'S LEFT ARM COVERED WITH NON-ADHERENT GAUZE AND COBAN. SOME BANDAIDS BECAUSE PER NURSING REPORT, THE PATIENT IS SCRATCHING AT HER ARM. PT REMAINS ON BEDREST FOR PENDING HIP FIX TOMORROW. NO OTHER CONCERNS. WILL CLOSELY MONITOR PATIENT THROUGH THE NIGHT.
[2022-06-21] VITALS (12 sets, daily range): BP systolic 133–160; BP diastolic 66–124; PULSE 89–96; TEMP 97.7–98.5
--- NOTE | 2022-06-21 06:09 | NUR ---
Pt has had an uneventful night, Pain has been managed. Gave x1 dose of morphine. She denies severe pain at this time. No other concerns. Will report to day shift RN.
[2022-06-21 06:25] LABS: BASO % 0.4 % (0.0-2.0); EOS # 0.2 K/mm3 (0.0-0.7); EOS % 1.8 % (0.0-4.0); GRAN # 8.2 K/mm3 (1.4-6.5); GRAN % 81.4 % (42.2-75.2); HEMOGLOBIN 11.1 g/dl (12.5-16.0); LYMPH # 0.9 K/mm3 (1.2-3.4); LYMPH % 8.9 % (20.0-51.0); MEAN CELL VOLUME 99 fl (80.0-100.0); MEAN CORPUSCULAR HEMOGLOBIN 32 pg (27-31); MEAN CORPUSCULAR HGB CONC 32 g/dl (33.0-37.0); MEAN PLATELET VOLUME 10.1 fl (7.4-10.4); MONO # 0.7 K/mm3 (0.1-0.6); MONO % 6.9 % (1.7-9.3); PLATELET COUNT 268 K/mm3 (130-400); RED BLOOD COUNT 3.52 M/mm3 (4.10-5.30); REDCELL DISTRIBUTION WIDTH-CV 14.4 % (11.5-14.5)
[2022-06-21 06:32] LABS: HEMATOCRIT 34.9 % (37.0-47.0)
[2022-06-21 06:33] LABS: INR 1.5 (0.8-3.0); PROTHROMBIN TIME 17.6 SECONDS (9.7-12.8)
[2022-06-21 06:41] LABS: CALCIUM 8.9 mg/dL (8.4-10.2); CREATININE, serum 0.87 mg/dL (0.57-1.11); POTASSIUM 4.3 mmol/L (3.5-4.5)
--- NOTE | 2022-06-21 11:00 | NUR ---
RT attempted to get spirometry from Patient. When patient forcefully blew out it caused to much pain for patient. Patient didn't want to continue and also couldn't keep a tight seal with mouth. BRITTANY KUHN was notified.
[2022-06-21 11:02] LABS: ARTERIAL BLD GAS O2 SATURATION 96.2 % (92-100); ARTERIAL BLD GAS TCO2 CT 26.2; ARTERIAL BLOOD GAS HCO3 25.1 meq/L (22-26); ARTERIAL BLOOD GAS PCO2 38.1 mmHg (35-45); ARTERIAL BLOOD GAS pH 7.44 (7.35-7.45)
--- NOTE | 2022-06-21 11:07 | NUR ---
PATIENT ALERT AND ORIENTED X4. VSS. PATIENT HERE FOR LEFT HIP FRACTURE. PATIENT COMPLAINS OF PAIN /. PATIENT REQUESTS PAIN MEDICATION. PATIENT REFUSED PART OF ASSESSMENT, WILL NOT ALLOW PART OF SKIN ASSESSMENT. ICE PACK TO LEFT HIP. 02 AT 3L PER NC. IV TO RIGHT FA INT, FLUSHES WELL. PATIENT NPO AND ON BEDREST. PICHARDO TO DD WITH GOOD OUTPUT. CALL LIGHT WITHIN REACH.
--- NOTE | 2022-06-21 11:29 | NUR ---
The patient has a hip fracture. ERIK met met with the patient, her daughter (Steve), and another family member to discuss post-acute rehab. Steve clarified that the patient lives in [place] with her niece and Ledy, "who is like another daughter." Steve states that they are not biologically related. Ledy goes to [facility]. Steve lives in [place]. The patient and her daughter are in agreement to post-acute rehab. ERIK provided them with Medicare.gov's list of SNFs around the [facility] and informed them of IPR. Steve would like some time to look over the list and go over the options with her brother. *Discharge plan: post-acute rehab*
[2022-06-21 11:45] LABS: INR 1.3 (0.8-3.0); PROTHROMBIN TIME 14.9 SECONDS (9.7-12.8)
--- NOTE | 2022-06-21 20:47 | NUR ---
PT A&O RESTING IN BED. MEDS GIVEN AND ASSESSMENT COMPLETED. VS STABLE AND TELE IN PLACE. PT RATES HIP PAIN A 08/23. NORCO GIVEN. AQAUCELL TO LT HIP INCISION WITH MINIMAL DRAINAGE. PICHARDO IN PLACE WITH YELLOW URINE OUTPUT. SCDS APPLIED TO BLE. DRESSING APPLIED TO LT ELOW SKIN TEAR. O2 RUNNING AT 3L NC. NS TO GRAVITY IN RT FOREARM. NO OTHER NEEDS AT THIS TIME. CALL LIGHT WITHIN REACH.
[2022-06-22] VITALS (7 sets, daily range): BP systolic 107–142; BP diastolic 50–90; PULSE 84–114; TEMP 97.4–98.3
[2022-06-22 06:24] LABS: BASO % 0.1 % (0.0-2.0); GRAN % 86.9 % (42.2-75.2); HEMOGLOBIN 10.3 g/dl (12.5-16.0); LYMPH # 0.6 K/mm3 (1.2-3.4); MEAN CELL VOLUME 96 fl (80.0-100.0); MEAN CORPUSCULAR HEMOGLOBIN 32 pg (27-31); MEAN CORPUSCULAR HGB CONC 33 g/dl (33.0-37.0); MEAN PLATELET VOLUME 10.4 fl (7.4-10.4); MONO # 0.7 K/mm3 (0.1-0.6); MONO % 6.4 % (1.7-9.3); PLATELET COUNT 251 K/mm3 (130-400); RED BLOOD COUNT 3.21 M/mm3 (4.10-5.30); REDCELL DISTRIBUTION WIDTH-CV 13.7 % (11.5-14.5)
[2022-06-22 06:33] LABS: CALCIUM 8.8 mg/dL (8.4-10.2); CREATININE, serum 0.79 mg/dL (0.57-1.11); POTASSIUM 4.5 mmol/L (3.5-4.5)
[2022-06-22 06:42] LABS: HEMATOCRIT 30.9 % (37.0-47.0)
--- NOTE | 2022-06-22 11:17 | NUR ---
The patient's daughter, Steve, contacted [facility]. Steve states that they would prefer [facility]. For a second preference they would prefer [facility] or [facility]. [facility] consulted [facility] Director, Alka. [facility] contacted and faxed a referral to [facility] and [facility]. Awaiting screens. *Discharge plan: post-acute rehab. Referrals out*
--- NOTE | 2022-06-22 12:42 | NUR ---
PATIENT ALERT AND ORIENTED X4. VSS. PATIENT HERE FOR LEFT HIP FRACTURE. PATIENT REPORTS PAIN 10/10, REQUESTS PAIN MEDICATION. ICE PACK TO LEFT HIP. DRESSING TO LEFT HIP WITH QUARTER SIZED DRAINAGE, INTACT. LR RUNNING AT 60ML/HOUR IN RIGHT FOREARM. PATIENT REFUSING BREATHING TREATMENTS, PATIENT EDUCATED ON IMPORTANCE OF TREATMENTS. PATIENT IN CHAIR WITH ALARM ACTIVATED AND CALL LIGHT NEAR.
--- NOTE | 2022-06-22 12:50 | NUR ---
Lizbeth, at [facility], reports that as of right now; they will not have a bed available this week.
--- NOTE | 2022-06-22 14:28 | NUR ---
Ebony, at [facility], reports that they are able to accept the patient.
--- NOTE | 2022-06-22 20:00 | NUR ---
PT A&O RESTING IN BED. MEDS GIVEN AND ASSESSMENT COMPLETED. PT DENIES PN IN THE HIP. SHEYLA CDI. 02 TO 3L NC. VS STABLE. PICHADRO AND TELE ARE IN PLACE. NO OTHER NEEDS AT THIS TIME. CALL LIGHT WITHIN REACH.
[2022-06-23 04:12] VITALS: BP 115/56; PULSE 83; TEMP 97.6
[2022-06-23 06:25] LABS: BASO % 0.4 % (0.0-2.0); EOS # 0.2 K/mm3 (0.0-0.7); EOS % 2.2 % (0.0-4.0); GRAN % 64.3 % (42.2-75.2); LYMPH # 1.8 K/mm3 (1.2-3.4); LYMPH % 22.5 % (20.0-51.0); MEAN CELL VOLUME 99 fl (80.0-100.0); MEAN CORPUSCULAR HGB CONC 32 g/dl (33.0-37.0); MEAN PLATELET VOLUME 10.7 fl (7.4-10.4); MONO # 0.8 K/mm3 (0.1-0.6); MONO % 10.1 % (1.7-9.3); PLATELET COUNT 244 K/mm3 (130-400); RED BLOOD COUNT 2.94 M/mm3 (4.10-5.30); REDCELL DISTRIBUTION WIDTH-CV 14.1 % (11.5-14.5)
[2022-06-23 06:32] LABS: HEMOGLOBIN 9.4 g/dl (12.5-16.0); MEAN CORPUSCULAR HEMOGLOBIN 32 pg (27-31)
[2022-06-23 06:37] LABS: CALCIUM 8.4 mg/dL (8.4-10.2); CREATININE, serum 0.82 mg/dL (0.57-1.11); POTASSIUM 4.5 mmol/L (3.5-4.5)
[2022-06-23 08:02] VITALS: BP 103/71; PULSE 92; TEMP 98.3
[2022-06-23] MEDS ORDERED: NORCO 325 MG-51 TAB PO ×3 (09:27→10:24)
--- NOTE | 2022-06-23 10:03 | NUR ---
Initial visit; Patients' daughter thanked Bracelet Form Coverer for looking in on her mom who is still experiencing confusion. Bracelet Form Coverer wished Kerri and family God's blessings.
--- NOTE | 2022-06-23 10:53 | NUR ---
Alka, [facility] Director, reports that they will have to decline the patient; due to not participating with therapy. The clinical team is ready to discharge the patient today. [facility] met with the patient and her daughter, Steve. The patient and her daughter are in agreement to going to [facility] today. SW presented and read the IM form outloud to the patient. The patient verbalized understanding and agreement to discharge today. She signed the form and SW provided her with a copy. The patient is to discharge today, 06/23, to [facility] [place] for a skilled stay. Transportation was scheduled at 1300, via [facility]. [facility] informed the patient, her daughter, and RN of the transport time. No additional needs at this time.
[2022-06-23 12:23] VITALS: BP 10/52; PULSE 86; TEMP 98.4
--- NOTE | 2022-06-23 13:25 | NUR ---
PATIENT TRANSFERED TO [facility] [address] [facility]. REPORT CALLED TO ASHLEE. MAGDA GRAY'Jb. PATIENT AND FAMILY ESCORTED OUT VIA WHEELCHAIR WITH TRANSPORTER.
== END 2022-06-23 13:15 | DRG 470 ==
LOC: COL.ER 22:29 → SURG 23:53
PROVIDERS: Emergency Medicine; Orthopaedic Surgery; Physician Assistant; Student in an Organized Health Care Education/Training Program; ADMIT Student in an Organized Health Care Education/Training Program
PROC: 0SRS0J9 Replacement of Left Hip Joint, Femoral Surface with Synthetic Substitute, Cemented, Open Approach (ICD-10-PCS; principal; 2022-06-21 14:30)
DX: S72.92XA Unspecified fracture of left femur, initial encounter for closed fracture (principal); J96.11 Chronic respiratory failure with hypoxia; I50.22 Chronic systolic (congestive) heart failure; J44.9 Chronic obstructive pulmonary disease, unspecified; E78.5 Hyperlipidemia, unspecified; H81.10 Benign paroxysmal vertigo, unspecified ear; D64.9 Anemia, unspecified; G62.9 Polyneuropathy, unspecified; F17.210 Nicotine dependence, cigarettes, uncomplicated; W01.0XXA Fall on same level from slipping, tripping and stumbling without subsequent striking against object, initial encounter; E55.9 Vitamin D deficiency, unspecified; I11.0 Hypertensive heart disease with heart failure; F32.A Depression, unspecified; K21.9 Gastro-esophageal reflux disease without esophagitis; M19.90 Unspecified osteoarthritis, unspecified site; F41.9 Anxiety disorder, unspecified; S50.311A Abrasion of right elbow, initial encounter; I65.23 Occlusion and stenosis of bilateral carotid arteries; Z20.822 Contact with and (suspected) exposure to COVID-19; Z23 Encounter for immunization; Z86.718 Personal history of other venous thrombosis and embolism; Y93.89 Activity, other specified; Y92.89 Other specified places as the place of occurrence of the external cause; Z90.49 Acquired absence of other specified parts of digestive tract; Z98.51 Tubal ligation status; Z87.19 Personal history of other diseases of the digestive system; Z86.73 Personal history of transient ischemic attack (TIA), and cerebral infarction without residual deficits; Z87.01 Personal history of pneumonia (recurrent); Z91.013 Allergy to seafood; Z99.81 Dependence on supplemental oxygen; Z79.01 Long term (current) use of anticoagulants; Z86.711 Personal history of pulmonary embolism
CPT/HCPCS: A9284; C1776; J0690; J1100; J2175; J2250; J2270; J2370; J2704; J2765; J3010; J7120

== ENCOUNTER → 2022-07-05 | Outpatient (CLI) | payer MEDICARE, MEDICAID ==
[~2022-07-05] MED LIST changes: +BONINE25 MG PO
== END ==
LOC: COL.RAD 16:42
DX: M25.552 Pain in left hip (principal)